=== PATIENT | female | born 1970 | race Caucasian/White ===

== ENCOUNTER 2020-12-30 08:56 | Emergency (ER) | payer BC, MEDICAID, MEDICARE ==
[~2020-12-30] VITALS: Ht 160 cm; Wt 72.0 kg
[~2020-12-30 08:56] MED LIST: AC500T PO; ACET-789 PO; ACHD5005 PO; ALBU17AE23 IH; ALBU17AE3 IH; ALBU8.5H2 IH; ALBU8.5H4 IH; ALDACTONE25 MG PO; ALPR1T PO; ALPR1TAB21 PO; ALPR1TAB72 PO; AMIT25TA9 PO; AMOX500C2 PO; APIX5TAB2 PO; ASP81CT PO; ASP81TEC; AZIT-21 PO; BMSB30 PO; BUTA-234; BUTA-234 PO; BUTA1TAB55 PO; CEFD300C3 PO; CEPH-38 PO; CEPH500C PO; CHOL2000 PO; CIPR-17 PO; CLCX200C PO; CLIN300C3 PO; CPR250T PO; CPR500T PO; CYAN100053 IJ; CYCL10TA9 PO; DESV100T; DESV50TA PO; DIAZ5TAB3 PO; DOXE100C4; DOXY-233 PO; ENXP80I.8 SQ; ESZO3TAB3 PO; FENO45CA PO; FERR-57 PO; FERR324T4 PO; FESO4TAB PO; FRS325T; GABA-488 PO; GABA100C PO; GBPN100C PO; HYDR-1231 PO; HYDR-2890 PO; HYDR-34 PO; HYDR-3583 PO; HYDR-3816 PO; HYDR-757 PO; HYDR118S10 PO; HYDR120S7 PO; HYDR15SO5 PO; HYDR1CAP2 PO; HYDR1TAB PO; HYDR1TAB86 PO; HYOS0.1216 PO; IBP800T PO; KETO-22 PO; LORA10TA7 PO; MAGN400T6 PO; MELO-195 PO; MELOXICAM; METR500T PO; MILN50TA PO; MTC5V480 PO; MTR250T PO; NAPR-243 PO; NAPR220T76 PO; NEXIUM; NF-ESOM40C PO; NITR-65 PO; NITR100C3 PO; NYST1000 PO; ONDA8TAB13 PO; ONDA8TAB6 PO; ONDAN4ODT PO; ORPH100T PO; OXB5T; OXB5TCR PO; OXYC-12 PO; OXYC1CAP3 PO; PHEN200T27 PO; PNT40TEC PO; PRCD5U PO; PRD10T PO; PRD20T PO; RABE20TA PO; ROPI0.25 PO; ROPI1TAB PO; ROPI2TAB28 PO; SCR1T PO; SERT50TA2 PO; SPIR25TA3 PO; SPRINTEC PO; SULF-222 PO; SUMA100T2 PO; TAPE50TA2 PO; TETR500C2 PO; TRAM-21 PO; TRAM50TA2 PO; TRM50T PO; VNL75CCR PO; VNL75T PO; WARF6TAB PO; WRF10T PO; WRF2.5T PO; WRF5T PO; ZOLP10TA PO; [UNRECOGNIZED DRUG - CODE] PO; [UNRECOGNIZED DRUG - CODE] PO
[2020-12-30] MEDS ORDERED: LORazepam INJ 2 MG/ML (ATIVAN) VIAL IVP ONE ×2 (09:15→09:30)
[2020-12-30 09:16] LABS: BASOPHILS # (AUTO) 0.1 10^3/uL (0.0-0.1); BASOPHILS % (AUTO) 1 % (0-10); EOSINOPHILS # (AUTO) 0.1 10^3/uL (0.0-0.3); EOSINOPHILS % (AUTO) 2 % (0-10); HEMATOCRIT 39 % (35-52); HEMOGLOBIN 12.6 g/dL (11.5-16.0); LYMPHOCYTES % (AUTO) 28 % (12-44); MEAN CORPUSCULAR HEMOGLOBIN 29 pg (25-34); MEAN CORPUSCULAR HGB CONC 33 g/dL (32-36); MEAN CORPUSCULAR VOLUME 88 fL (80-99); MEAN PLATELET VOLUME 9.9 fL (9.0-12.2); MONOCYTES # (AUTO) 0.5 10^3/uL (0.0-1.0); MONOCYTES % (AUTO) 7 % (0-12); NEUTROPHILS # (AUTO) 4.5 10^3/uL (1.8-7.8); NEUTROPHILS % (AUTO) 62 % (42-75); PLATELET COUNT 376 10^3/uL (130-400); WHITE BLOOD COUNT 7.2 10^3/uL (4.3-11.0)
[2020-12-30 09:27] LABS: ALBUMIN 4.4 GM/DL (3.2-4.5); CHLORIDE 106 MMOL/L (98-107); POTASSIUM 4.2 MMOL/L (3.6-5.0); SODIUM 140 MMOL/L (135-145)
[2020-12-30 09:28] LABS: CALCIUM 9.2 MG/DL (8.5-10.1)
[2020-12-30 09:29] LABS: GLUCOSE 106 MG/DL (70-105)
[2020-12-30 09:30] LABS: CARBON DIOXIDE 23 MMOL/L (21-32); TOTAL PROTEIN 7.9 GM/DL (6.4-8.2)
[2020-12-30] MEDS ORDERED: LACTATED RINGERS 1,000 ML IV ONE ×2 (09:30→10:30)
[2020-12-30 09:31] LABS: BILIRUBIN,TOTAL 0.4 MG/DL (0.1-1.0)
[2020-12-30 09:33] LABS: ALKALINE PHOSPHATASE 126 U/L (40-136); CREATININE SERUM 1.25 MG/DL (0.60-1.30); GFR ESTIMATED 45
[2020-12-30 09:34] LABS: BUN/CREATININE RATIO 18
[2020-12-30 09:36] LABS: ALANINE AMINOTRANSFERASE 18 U/L (0-55); MAGNESIUM 2.2 MG/DL (1.6-2.4)
[2020-12-30 09:37] LABS: CREATINE KINASE 206 U/L (29-168)
[2020-12-30 11:45] LABS: BILIRUBIN,URINE NEGATIVE (NEGATIVE); CLARITY,URINE CLEAR; COLOR,URINE YELLOW; GLUCOSE, URINE (UA) NEGATIVE (NEGATIVE); KETONES,URINE NEGATIVE (NEGATIVE); LEUKOCYTE ESTERASE ,URINE 3+ (NEGATIVE); NITRITE,URINE NEGATIVE (NEGATIVE); PROTEIN,URINE NEGATIVE (NEGATIVE)
[2020-12-30 12:03] LABS: BACTERIA,URINE FEW /HPF; TRICHOMONAS,URINE MODERATE /HPF; WBC,URINE 50-100 /HPF
[2020-12-30 12:18] LABS: AMPHETAMINE SCREEN, URINE POSITIVE (NEGATIVE); BARBITURATE SCREEN URINE NEGATIVE (NEGATIVE); BENZODIAZEPINES SCREEN URINE POSITIVE (NEGATIVE); CANNABINOID SCREEN, URINE NEGATIVE (NEGATIVE); COCAINE SCREEN URINE NEGATIVE (NEGATIVE); METHADONE STAT NEGATIVE (NEGATIVE); METHAMPHETAMINE SCREEN URINE S POSITIVE (NEGATIVE); OPIATE SCREEN URINE POSITIVE (NEGATIVE); OXYCODONE STAT NEGATIVE (NEGATIVE); PROPOXYPHENE STAT NEGATIVE (NEGATIVE); TRICYCLIC ANTIDEPRESSANTS SCRE NEGATIVE (NEGATIVE)
[2020-12-30] MEDS ORDERED: metroNIDAZOLE 500 MG (FLAGYL) TAB PO ONE (12:45)
[2020-12-30] MEDS ORDERED: AZITHROMYCIN 250 MG TAB (ZITHROMAX) PO ONE (12:45)
[2020-12-30] MEDS ORDERED: ONDANSETRON 4 MG/2 ML (SDV) Z0FRAN IVP ONE (12:45)
[2020-12-30] MEDS ORDERED: cefTRIAXone FOR IV USE 1,000 MG in WATER (STERILE) FOR INJECTION 10 ML IV ONE (12:45)
[2020-12-30] MEDS ORDERED: CEPH500T PO (12:46)
--- NOTE | 2020-12-30 12:46 | ED General ---
General Chief Complaint: General Problems/Pain Stated Complaint: SOB, DIFFICULTY SWALLOWING, LEG CRAMPS Nursing Triage Note: PT AMB TO ROOM 3 PT UNCONTROLLABLY MOVING HEAD, LEGS AND ARMS. PT STATES CRAMPING STARTED 3 DAYS AGO, STATES HAS NOT BEEN EATING OR DRINKING. STATES TINGLING ALL OVER. PT IS HYPERVENTILATING RR UP TO 50'S AT TIMES. Nursing Sepsis Screen: No Definite Risk Source of Information: Patient, Old Records Exam Limitations: No Limitations History of Present Illness Date Seen by Provider: Dec 30, 2020 Time Seen by Provider: 08:58 Initial Comments This 50-year-old woman presents to the emergency room by private vehicle with complaints that are difficult to discern. She is quite anxious and appears to be hyperventilating. She has dystonic movements. She complains of cramping and sore muscles especially in her right calf. She has had decreased oral intake over the past 3 days and has felt agitated. She complains of paresthesias in her extremities. She states difficulty swallowing. She denies any drug or alcohol use. She is notably hypertensive. She reports recently moving back to the area from [place]. Allergies and Home Medications Allergies Coded Allergies: ketorolac tromethamine (Verified Allergy, Intermediate, NAUSEATED, 09/18/13) Shubert Juice (Verified Allergy, Unknown, HIVES, 02/01/15) tramadol (Unverified Allergy, Unknown, 02/01/15) Home Medications Albuterol 17 Gm Inh, 2 PUFF IH QID PRN for WHEEZING, (Reported) NEEDED FOR WHEEZING Cephalexin 500 Mg Tablet, 500 MG PO TID Prescribed by: LACIE BELL on 12/30/20 1246 Cyclobenzaprine HCl 10 Mg Tablet, 10 MG PO TID, (Reported) Hydrocodone Bit/Acetaminophen 1 Each Tablet, 1-2 TAB PO Q4H PRN for PAIN, (Reported) NEEDED FOR PAIN 10-500MG TABLET Ondansetron 8 Mg Tab.rapdis, 8 MG PO Q6H PRN for NAUSEA/VOMITING Prescribed by: SUNDAY ORELLANA on 06/24/14 1355 Sertraline HCl 50 Mg Tablet, 50 MG PO DAILY, (Reported) Sumatriptan Succinate 100 Mg Tablet, 100 MG PO UD PRN for MIGRAINE, (Reported) TAKE 1 TABLET AT ONSET OF MIGRAINE, MAY REPEAT IN 2 HOURS IF SYMPTOMS PRESIST. Zolpidem Tartrate 10 Mg Tablet, 10 MG PO HS, (Reported) Patient Home Medication List Home Medication List Reviewed: Yes Review of Systems Review of Systems Constitutional: see HPI; No fever EENTM: see HPI Respiratory: see HPI Cardiovascular: see HPI Gastrointestinal: no symptoms reported Genitourinary: no symptoms reported Musculoskeletal: see HPI Skin: no symptoms reported Psychiatric/Neurological: See HPI Hematologic/Lymphatic: No Symptoms Reported Immunological/Allergic: no symptoms reported Past Fmcptxo-Lvoepz-Yddxbs Hx Past Med/Social Hx: Reviewed Nursing Past Med/Soc Hx Patient Social History Alcohol Use: Denies Use Smoking Status: Current Everyday Smoker Type Used: Cigarettes Recent Infectious Disease Expo: No Recent Hopitalizations: No Immunizations Up To Date Tetanus Booster (TDap): Less than 5yrs Past Medical History Surgeries: Yes (RIGHT CTR, LAC repair rt forearm, vena cava filter placement, gastric bypas) 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 Respiratory: Yes Pulmonary Embolism Cardiac: Yes (cardiac catheter 2010 with no coronary artery disease) Deep Vein Thrombosis Neurological: Yes 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 Disorders: No 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 Sexually Transmitted Disease: No Genitourinary: No Gastrointestinal: Yes (GASTRIC BYPASS) Musculoskeletal: Yes Arthritis Endocrine: No Cancer: No Psychosocial: Yes Anxiety, Depression Integumentary: Yes (CURRENT GENERALIZED VASCULITIS ) Recent Skin Changes Blood Disorders: Yes (HX BLOOD CLOTS IN LUNGS ) Family Medical History Alcoholism 09 BROTHER Family history: Diabetes mellitus 03 FATHER Heart disease 03 FATHER Myocardial infarction 03 MOTHER, Onset:62 No Pertinent Family Hx Physical Exam Vital Signs Vital Signs - First Documented 12/30/20 08:58 Temp 36.5 Pulse 78 Resp 28 B/P (MAP) 189/135 (153) Pulse Ox 96 O2 Delivery Room Air Capillary Refill : Less Than 3 Seconds Height, Weight, BMI Height: 5'3" Weight: 160lbs. 4.0oz. 72.487691ux; 28.00 BMI Method:Stated General Appearance: WD/WN, Moderate Distress HEENT: PERRL/EOMI, Other (Oropharynx somewhat dry) Neck: Normal Inspection Respiratory: Lungs Clear, Normal Breath Sounds, No Accessory Muscle Use, Other (Hyperventilating) Cardiovascular: Regular Rate, Rhythm, No Edema, No Murmur Gastrointestinal: Normal Bowel Sounds, Non Tender, Soft Extremity: Normal Inspection, No Pedal Edema, Other (Right calf tender to palpation) Neurologic/Psychiatric: Alert, Oriented x3, No Motor/Sensory Deficits, religious assistant II- XII Norm as Tested, Other (Agitated, dystonic movements, hyperventilating) Skin: Normal Color, Warm/Dry Progress/Results/Core Measures Suspected Sepsis Recent Fever Within 48 Hours: No Infection Criteria Present: None New/Unexplained Altered Menta: No Sepsis Screen: No Definite Risk SIRS Temperature: Pulse: 78 Respiratory Rate: 28 Laboratory Tests 12/30/20 09:09: White Blood Count 7.2 Blood Pressure 189 /135 Mean: 153 Laboratory Tests 12/30/20 09:09: Creatinine 1.25, Platelet Count 376, Total Bilirubin 0.4 Results/Orders Lab Results Laboratory Tests Test 12/30/20 09:05 12/30/20 09:09 12/30/20 11:35 Range/Units Coronavirus 2019 (MYRIAM) Negative Negative White Blood Count 7.2 4.3-11.0 10^3/uL Red Blood Count 4.41 3.80-5.11 10^6/uL Hemoglobin 12.6 11.5-16.0 g/dL Hematocrit 39 35-52 % Mean Corpuscular Volume 88 80-99 fL Mean Corpuscular Hemoglobin 29 25-34 pg Mean Corpuscular Hemoglobin Concent 33 32-36 g/dL Red Cell Distribution Width 12.8 10.0-14.5 % Platelet Count 376 130-400 10^3/uL Mean Platelet Volume 9.9 9.0-12.2 fL Immature Granulocyte % (Auto) 0 % Neutrophils (%) (Auto) 62 42-75 % Lymphocytes (%) (Auto) 28 12-44 % Monocytes (%) (Auto) 7 0-12 % Eosinophils (%) (Auto) 2 0-10 % Basophils (%) (Auto) 1 0-10 % Neutrophils # (Auto) 4.5 1.8-7.8 10^3/uL Lymphocytes # (Auto) 2.0 1.0-4.0 10^3/uL Monocytes # (Auto) 0.5 0.0-1.0 10^3/uL Eosinophils # (Auto) 0.1 0.0-0.3 10^3/uL Basophils # (Auto) 0.1 0.0-0.1 10^3/uL Immature Granulocyte # (Auto) 0.0 0.0-0.1 10^3/uL D-Dimer < 0.27 0.00-0.49 UG/ML Sodium Level 140 135-145 MMOL/L Potassium Level 4.2 3.6-5.0 MMOL/L Chloride Level 106 98-107 MMOL/L Carbon Dioxide Level 23 21-32 MMOL/L Anion Gap 11 5-14 MMOL/L Blood Urea Nitrogen 22 H 7-18 MG/DL Creatinine 1.25 0.60-1.30 MG/DL Estimat Glomerular Filtration Rate 45 BUN/Creatinine Ratio 18 Glucose Level 106 H 70-105 MG/DL Calcium Level 9.2 8.5-10.1 MG/DL Corrected Calcium 8.9 8.5-10.1 MG/DL Magnesium Level 2.2 1.6-2.4 MG/DL Total Bilirubin 0.4 0.1-1.0 MG/DL Aspartate Amino Transf (AST/SGOT) 14 5-34 U/L Alanine Aminotransferase (ALT/SGPT) 18 0-55 U/L Alkaline Phosphatase 126 40-136 U/L Total Creatine Kinase 206 H 29-168 U/L Total Protein 7.9 6.4-8.2 GM/DL Albumin 4.4 3.2-4.5 GM/DL TSH [place] Testing 0.50 0.35-4.94 UIU/ML Serum Alcohol < 10 <10 MG/DL Urine Color YELLOW Urine Clarity CLEAR Urine pH 7.0 5-9 Urine Specific [place] 1.020 1.016-1.022 Urine Protein NEGATIVE NEGATIVE Urine Glucose (UA) NEGATIVE NEGATIVE Urine Ketones NEGATIVE NEGATIVE Urine Nitrite NEGATIVE NEGATIVE Urine Bilirubin NEGATIVE NEGATIVE Urine Urobilinogen 1.0 < = 1.0 MG/DL Urine Leukocyte Esterase 3+ H NEGATIVE Urine RBC (Auto) NEGATIVE NEGATIVE Urine RBC NONE /HPF Urine WBC 50-100 H /HPF Urine Squamous Epithelial Cells 10-25 H /HPF Urine Crystals NONE /LPF Urine Bacteria FEW H /HPF Urine Casts NONE /LPF Urine Mucus SMALL H /LPF Urine Trichomonas MODERATE H /HPF Urine Culture Indicated YES Urine Opiates Screen POSITIVE H NEGATIVE Urine Oxycodone Screen NEGATIVE NEGATIVE Urine Methadone Screen NEGATIVE NEGATIVE Urine Propoxyphene Screen NEGATIVE NEGATIVE Urine Barbiturates Screen NEGATIVE NEGATIVE Ur Tricyclic Antidepressants Screen NEGATIVE NEGATIVE Urine Phencyclidine Screen NEGATIVE NEGATIVE Urine Amphetamines Screen POSITIVE H NEGATIVE Urine Methamphetamines Screen POSITIVE H NEGATIVE Urine Benzodiazepines Screen POSITIVE H NEGATIVE Urine Cocaine Screen NEGATIVE NEGATIVE Urine Cannabinoids Screen NEGATIVE NEGATIVE My Orders Orders - LACIE MORENO MD Lorazepam Injection (Ativan Injection) (12/30/20 09:15) Alcohol (12/30/20 09:05) Cbc With Automated Diff (12/30/20 09:05) Comprehensive Metabolic Panel (12/30/20 09:05) Creatine Kinase (12/30/20 09:05) Fibrin Degradation Products (12/30/20 09:05) Drug Screen Stat (Urine) (12/30/20 09:05) Magnesium (12/30/20 09:05) Thyroid Analyzer (12/30/20 09:05) Ua Culture If Indicated (12/30/20 09:05) Covid 19 Inhouse Test (12/30/20 09:05) Lorazepam Injection (Ativan Injection) (12/30/20 09:30) Ed Iv/Invasive Line Start (12/30/20 09:27) Lactated Ringers (Lr 1000 Ml Iv Solution (12/30/20 09:30) Lactated Ringers (Lr 1000 Ml Iv Solution (12/30/20 10:30) Urine Culture (12/30/20 11:35) Ceftriaxone For Iv Use (Rocephin For I (12/30/20 12:45) Ondansetron Injection (Zofran Injectio (12/30/20 12:45) Azithromycin Tablet (Zithromax Tablet) (12/30/20 12:45) Metronidazole Tablet (Flagyl Tablet) (12/30/20 12:45) Neis Inderjit Dna Urine Test (12/30/20 12:40) Chlamydia Trachomatis Urine (12/30/20 12:40) Medications Given in ED Current Medications Medications Dose Ordered Sig/Amanda Route Start Time Stop Time Status Last Admin Dose Admin Azithromycin 1,000 mg ONCE ONCE PO 12/30/20 12:45 12/30/20 12:46 DC 12/30/20 12:53 1,000 MG Ceftriaxone Sodium 1000 mg/ Sterile Water 10 ml @ 200 mls/hr ONCE ONCE IV 12/30/20 12:45 12/30/20 12:47 DC 12/30/20 12:53 200 MLS/HR Lactated Ringer's 1,000 ml @ 0 mls/hr Q0M ONCE IV 12/30/20 09:30 12/30/20 09:31 DC 12/30/20 09:30 1,000 MLS/HR Lactated Ringer's 1,000 ml @ 0 mls/hr Q0M ONCE IV 12/30/20 10:30 12/30/20 10:31 DC 12/30/20 10:38 1,000 MLS/HR Lorazepam 0.5 mg ONCE ONCE IVP 12/30/20 09:15 12/30/20 09:16 DC 12/30/20 09:15 0.5 MG Lorazepam 1 mg ONCE ONCE IVP 12/30/20 09:30 12/30/20 09:31 DC 12/30/20 09:30 1 MG Metronidazole 2,000 mg ONCE ONCE PO 12/30/20 12:45 12/30/20 12:46 DC 12/30/20 12:53 2,000 MG Ondansetron HCl 4 mg ONCE ONCE IVP 12/30/20 12:45 12/30/20 12:46 DC 12/30/20 12:54 4 MG Vital Signs/I&O 12/30/20 12/30/20 08:58 13:03 Temp 36.5 Pulse 78 72 Resp 28 22 B/P (MAP) 189/135 (153) 130/99 (153) Pulse Ox 96 96 O2 Delivery Room Air Capillary Refill : Less Than 3 Seconds Blood Pressure Mean: 153 Progress Note : Progress Note Patient received a total of 1.5 mg Ativan by IV route for treatment of agitati on. She was unable to urinate and was given 2 L of LR. Urine drug screen revealed methamphetamines. Patient claims to have no idea how she may have ingested methamphetamine. Dystonia and agitation did eventually calm. Blood pressure was trending downward. Patient was also found to have trichomonas and evidence of urinary tract infection. She reports infidelity from By her from whom she is now . She was treated with Rocephin, Flagyl, and azithromycin empirically. STI screening was added to her urinalysis. See discharge instructions for further discussion. Departure Impression Primary Impression: Muscle cramps Additional Impressions: Urinary tract infection Qualified Codes: N39.0 - Urinary tract infection, site not specified Trichomonas infection Positive urine drug screen Dystonia Disposition: 01 HOME, SELF-CARE Condition: Improved Departure-Patient Inst. Decision time for Depature: 12:44 Referrals: NO,LOCAL PHYSICIAN (PCP/Family) Primary Care Physician Patient Instructions: Methamphetamine, Screening for Sexually Transmitted Infections, Urinary Tract Infections in Adults Add. Discharge Instructions: Drink plenty of clear liquids to stay well-hydrated. Complete your antibiotics as prescribed. You may take Tylenol (acetaminophen) up to 1000 mg every 6 hours as needed for pain. Follow-up with a primary care provider and a women's health provider soon as possible. Review culture results at your follow-up. Call with questions or concerns. Return to care with any worsening symptoms. All discharge instructions reviewed with patient and/or family. Voiced understanding. Scripts Cephalexin (Cephalexin) 500 Mg Tablet 500 MG PO TID, #20 TAB Prov: LACIE MORENO MD 12/30/20 LACIE MORENO MD Dec 30, 2020 12:46
[2020-12-30 13:03] VITALS: BP 130/99
== END 2020-12-30 13:03 | disposition home or self-care (01) ==
LOC: EDUNIT# 08:56 → ER 08:58
DX: R25.2 Cramp and spasm (principal); N39.0 Urinary tract infection, site not specified; A59.9 Trichomoniasis, unspecified; R82.90 Unspecified abnormal findings in urine; F32.9 Major depressive disorder, single episode, unspecified; F41.9 Anxiety disorder, unspecified; F17.210 Nicotine dependence, cigarettes, uncomplicated; Z95.9 Presence of cardiac and vascular implant and graft, unspecified; Z88.5 Allergy status to narcotic agent; Z82.49 Family history of ischemic heart disease and other diseases of the circulatory system; Z83.3 Family history of diabetes mellitus; Z20.822 Contact with and (suspected) exposure to COVID-19
CPT/HCPCS: 80053; 80306; 81000; 82550; 83735; 84443; 85025; 85379; 87077; 87088; 87491; 87591; 96361; 96374; 96375; 99284; G0480; U0002; 36415; 80320; 87635

== ENCOUNTER 2021-08-13 10:22 | Emergency (ER) | payer MEDICARE, BC ==
[~2021-08-13] VITALS: Ht 160 cm; Wt 90.0 kg
[~2021-08-13 10:22] MED LIST changes: +CEPH500T PO
[2021-08-13 10:45] LABS: BASOPHILS % (AUTO) 0 % (0-10); EOSINOPHILS # (AUTO) 0.2 10^3/uL (0.0-0.3); EOSINOPHILS % (AUTO) 3 % (0-10); HEMATOCRIT 30 % (35-52); HEMOGLOBIN 9.2 g/dL (11.5-16.0); LYMPHOCYTES # (AUTO) 1.5 10^3/uL (1.0-4.0); LYMPHOCYTES % (AUTO) 15 % (12-44); MEAN CORPUSCULAR HEMOGLOBIN 26 pg (25-34); MEAN CORPUSCULAR HGB CONC 31 g/dL (32-36); MEAN CORPUSCULAR VOLUME 86 fL (80-99); MEAN PLATELET VOLUME 9.8 fL (9.0-12.2); MONOCYTES # (AUTO) 0.5 10^3/uL (0.0-1.0); MONOCYTES % (AUTO) 6 % (0-12); NEUTROPHILS # (AUTO) 7.4 10^3/uL (1.8-7.8); NEUTROPHILS % (AUTO) 76 % (42-75); PLATELET COUNT 367 10^3/uL (130-400); WHITE BLOOD COUNT 9.7 10^3/uL (4.3-11.0)
--- NOTE | 2021-08-13 10:49 | ED Respiratory ---
General Chief Complaint: Respiratory Problems Stated Complaint: LOW O2 Source: patient Exam Limitations: no limitations (ESTRELLITA LAKE APRN) History of Present Illness Date Seen by Provider: Aug 13, 2021 Time Seen by Provider: 10:46 Initial Comments to ER from [facility] with reports of pain in her back and ribs from coughing. She had a productive cough for the past 3 weeks. She had a negative Covid test at [facility] yesterday. She has shortness of breath chronic. [place] she was previously from here. She forgot to bring her oxygen with her and she is supposed to wear it occasionally at home. She also spends a great deal of time talking about her medications. She is on Ambien 12.5 mg a day but she only gets 28 of those per month that is just not enough. She also takes gabapentin 800 mg 4 times a day, she is out of her Xanax though she has sent in a request for a refill but Dr. Membreno has not yet refilled it. She is been off of her morphine 40 mg 4 times daily for about a year and is trying to get that refilled as well. She is on Eliquis for hx of PE. Timing/Duration: constant Severity: moderate Associated Symptoms: cough; No fever/chills; shortness of breath (ESTRELLITA LAKE APRN) Allergies and Home Medications Allergies Coded Allergies: ketorolac tromethamine (Verified Allergy, Intermediate, NAUSEATED, 09/18/13) [place] Juice (Verified Allergy, Unknown, HIVES, 02/01/15) tramadol (Unverified Allergy, Unknown, 02/01/15) Patient Home Medication List Home Medication List Reviewed: Yes (ESTRELLITA LAKE APRN) Albuterol (Proventil) 17 Gm Inh, 2 PUFF IH QID PRN for WHEEZING, (Reported) Entered as Reported by: JOAO MARC on 09/18/13 1106 Amoxicillin/Potassium Clav (Augmentin 875-125 Tablet) 1 Each Tablet, 1 EACH PO BID Prescribed by: ESTRELLITA LAKE on 08/13/21 1256 Benzonatate (Tessalon Perles) 100 Mg Capsule, 100 MG PO TID Prescribed by: ESTRELLITA LAKE on 08/13/21 1256 Cephalexin (Cephalexin) 500 Mg Tablet, 500 MG PO TID Prescribed by: LACIE BELL on 12/30/20 1246 Cyclobenzaprine HCl (Cyclobenzaprine HCl) 10 Mg Tablet, 10 MG PO TID, (Reported) Entered as Reported by: SEVEN OLIVER on 06/24/16 134 Desvenlafaxine Succinate (Pristiq) 100 Mg Tab.sr.24h, 100, (Reported) Entered as Reported by: LESLY MORENO on 06/24/14 1100 Gabapentin (Gabapentin) 300 Mg Capsule, Unknown Dose PO, (Reported) Entered as Reported by: SEVEN OLIVER on 06/24/16 134 Hydrocodone Bit/Acetaminophen (Hydrocodon-Acetaminophn 10-500) 1 Each Tablet, 1- 2 TAB PO Q4H PRN for PAIN, (Reported) Entered as Reported by: MARJAN VILLALOBOS on 07/09/122053 Ondansetron (Ondansetron Odt) 8 Mg Tab.rapdis, 8 MG PO Q6H PRN for NAUSEA/VOMITING Prescribed by: SUNDAY ORELLANA on 06/24/14 1355 Prednisone (Prednisone) 20 Mg Tab, 40 MG PO DAILY Prescribed by: ESTRELLITA LAKE on 08/13/21 1256 Sertraline HCl (Zoloft) 50 Mg Tablet, 50 MG PO DAILY, (Reported) Entered as Reported by: SEVEN OLIVER on 06/24/16 134 Sumatriptan Succinate (Imitrex) 100 Mg Tablet, 100 MG PO UD PRN for MIGRAINE, (Reported) Entered as Reported by: MARJAN VILLALOBOS on 07/09/122054 Tapentadol HCl (Nucynta) 50 Mg Tablet, Unknown Dose PO, (Reported) Entered as Reported by: SEVEN OLIVER on 06/24/16 134 Zolpidem Tartrate (Ambien) 10 Mg Tablet, 10 MG PO HS, (Reported) Entered as Reported by: SEVEN OLIVER on 06/24/16 134 Review of Systems Review of Systems Constitutional: see HPI EENTM: see HPI Respiratory: see HPI, cough Cardiovascular: no symptoms reported Genitourinary: no symptoms reported Musculoskeletal: no symptoms reported Skin: no symptoms reported Psychiatric/Neurological: No Symptoms Reported Hematologic/Lymphatic: No Symptoms Reported Immunological/Allergic: no symptoms reported (ESTRELLITA LAKE APRN) Past Okdsuyv-Iutuhp-Qncgah Hx Immunizations Up To Date Tetanus Booster (TDap): Less than 5yrs (ESTRELLITA LAKE APRN) Past Medical History Surgeries: Yes (RIGHT CTR, LAC repair rt forearm, vena cava filter placement, gastric bypas) 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 Respiratory: Yes Pulmonary Embolism Cardiac: Yes (cardiac catheter 2011 with no coronary artery disease) Deep Vein Thrombosis Neurological: Yes 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 Disorders: No Female 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 Disorders: Denies 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 Sexually Transmitted Disease: No Genitourinary: No Gastrointestinal: Yes (GASTRIC BYPASS) Musculoskeletal: Yes Arthritis Endocrine: No Cancer: No Psychosocial: Yes Anxiety, Depression Integumentary: Yes (CURRENT GENERALIZED VASCULITIS ) Recent Skin Changes Blood Disorders: Yes (HX BLOOD CLOTS IN LUNGS ) (ESTRELLITA LAKE APRN) Family Medical History Alcoholism 09 BROTHER Family history: Diabetes mellitus 03 FATHER Heart disease 03 FATHER Myocardial infarction 03 MOTHER, Onset:62 No Pertinent Family Hx (ESTRELLITA LAKE APRN) Physical Exam Vital Signs - First Documented 08/13/21 10:41 Temp 37.1 Pulse 101 Resp 24 B/P (MAP) 146/91 (109) Pulse Ox 93 O2 Delivery Nasal Cannula O2 Flow Rate 2.00 (LACIE MORENO MD) Capillary Refill : (ESTRELLITA LAKE APRN) Height: 5'3" Weight: 160lbs. 4.0oz. [id number]; 28.00 BMI Method:Stated General Appearance: WD/WN, no apparent distress, other (96% on 2 L, though her oxygen is 88% on room air at rest.) Eyes: Bilateral Eye Normal Inspection, Bilateral Eye PERRL, Bilateral Eye EOMI HEENT: PERRL/EOMI, pharynx normal Neck: non-tender, full range of motion Respiratory: no respiratory distress, no accessory muscle use Gastrointestinal: normal bowel sounds, non tender Extremities: normal range of motion, non-tender Neurologic/Psychiatric: alert, normal mood/affect, oriented x 3 Skin: normal color, warm/dry (ESTRELLITA LAKE APRN) Progress/Results/Core Measures Suspected Sepsis SIRS Temperature: Pulse: Respiratory Rate: Laboratory Tests 08/13/21 10:35: White Blood Count 9.7 Blood Pressure / Mean: Laboratory Tests 08/13/21 10:35: Creatinine 1.04, Platelet Count 367, Total Bilirubin 0.2 (ESTRELLITA LAKE APRN) Results/Orders Lab Results Laboratory Tests Test 08/13/21 10:35 08/13/21 12:24 Range/Units White Blood Count 9.7 4.3-11.0 10^3/uL Red Blood Count 3.48 L 3.80-5.11 10^6/uL Hemoglobin 9.2 L 11.5-16.0 g/dL Hematocrit 30 L 35-52 % Mean Corpuscular Volume 86 80-99 fL Mean Corpuscular Hemoglobin 26 25-34 pg Mean Corpuscular Hemoglobin Concent 31 L 32-36 g/dL Red Cell Distribution Width 15.7 H 10.0-14.5 % Platelet Count 367 130-400 10^3/uL Mean Platelet Volume 9.8 9.0-12.2 fL Immature Granulocyte % (Auto) 1 % Neutrophils (%) (Auto) 76 H 42-75 % Lymphocytes (%) (Auto) 15 12-44 % Monocytes (%) (Auto) 6 0-12 % Eosinophils (%) (Auto) 3 0-10 % Basophils (%) (Auto) 0 0-10 % Neutrophils # (Auto) 7.4 1.8-7.8 10^3/uL Lymphocytes # (Auto) 1.5 1.0-4.0 10^3/uL Monocytes # (Auto) 0.5 0.0-1.0 10^3/uL Eosinophils # (Auto) 0.2 0.0-0.3 10^3/uL Basophils # (Auto) 0.0 0.0-0.1 10^3/uL Immature Granulocyte # (Auto) 0.1 0.0-0.1 10^3/uL D-Dimer 1.24 H 0.00-0.49 UG/ML Sodium Level 137 135-145 MMOL/L Potassium Level 4.0 3.6-5.0 MMOL/L Chloride Level 100 98-107 MMOL/L Carbon Dioxide Level 24 21-32 MMOL/L Anion Gap 13 5-14 MMOL/L Blood Urea Nitrogen 22 H 7-18 MG/DL Creatinine 1.04 0.60-1.30 MG/DL Estimat Glomerular Filtration Rate 56 BUN/Creatinine Ratio 21 Glucose Level 137 H 70-105 MG/DL Calcium Level 8.8 8.5-10.1 MG/DL Corrected Calcium 9.4 8.5-10.1 MG/DL Total Bilirubin 0.2 0.1-1.0 MG/DL Aspartate Amino Transf (AST/SGOT) 13 5-34 U/L Alanine Aminotransferase (ALT/SGPT) 17 0-55 U/L Alkaline Phosphatase 108 40-136 U/L B-Type Natriuretic Peptide 176.8 H <100.0 PG/ML Total Protein 6.5 6.4-8.2 GM/DL Albumin 3.2 3.2-4.5 GM/DL Procalcitonin 0.18 H <0.10 NG/ML Urine Color DARK YELLOW Urine Clarity SL CLOUDY Urine pH 6.0 5-9 Urine Specific [place] 1.025 H 1.016-1.022 Urine Protein TRACE H NEGATIVE Urine Glucose (UA) NEGATIVE NEGATIVE Urine Ketones NEGATIVE NEGATIVE Urine Nitrite NEGATIVE NEGATIVE Urine Bilirubin NEGATIVE NEGATIVE Urine Urobilinogen 1.0 < = 1.0 MG/DL Urine Leukocyte Esterase NEGATIVE NEGATIVE Urine RBC (Auto) NEGATIVE NEGATIVE Urine RBC 0-2 /HPF Urine WBC 0-2 /HPF Urine Crystals PRESENT H /LPF Urine Amorphous Sediment RARE FERMIN URATES H /LPF Urine Bacteria TRACE /HPF Urine Casts PRESENT /LPF Urine Hyaline Casts 0-2 H /LPF Urine Mucus NEGATIVE /LPF Urine Culture Indicated NO Urine Opiates Screen NEGATIVE NEGATIVE Urine Oxycodone Screen NEGATIVE NEGATIVE Urine Methadone Screen NEGATIVE NEGATIVE Urine Propoxyphene Screen NEGATIVE NEGATIVE Urine Barbiturates Screen NEGATIVE NEGATIVE Ur Tricyclic Antidepressants Screen POSITIVE H NEGATIVE Urine Phencyclidine Screen NEGATIVE NEGATIVE Urine Amphetamines Screen NEGATIVE NEGATIVE Urine Methamphetamines Screen NEGATIVE NEGATIVE Urine Benzodiazepines Screen NEGATIVE NEGATIVE Urine Cocaine Screen NEGATIVE NEGATIVE Urine Cannabinoids Screen NEGATIVE NEGATIVE (LACIE MORENO MD) Medications Given in ED Current Medications Medications Dose Ordered Sig/Amanda Route Start Time Stop Time Status Last Admin Dose Admin Acetaminophen 1,000 mg ONCE ONCE PO 08/13/21 11:00 08/13/21 11:01 DC 08/13/21 11:29 1,000 MG Ceftriaxone Sodium 2000 mg/ Sterile Water 20 ml @ 240 mls/hr ONCE ONCE IV 08/13/21 13:15 08/13/21 13:19 DC 08/13/21 13:26 240 MLS/HR Diphenhydramine HCl 25 mg ONCE ONCE IVP 08/13/21 11:00 08/13/21 11:01 DC 08/13/21 11:29 25 MG Iohexol 100 ml ONCE ONCE IV 08/13/21 12:00 08/13/21 12:01 DC 08/13/21 12:20 77 ML Prochlorperazine Edisylate 10 mg ONCE ONCE IV 08/13/21 11:00 08/13/21 11:01 DC 08/13/21 11:30 10 MG Sodium Chloride 100 ml ONCE ONCE IV 08/13/21 12:00 08/13/21 12:01 DC 08/13/21 12:20 80 ML (LACIE MORENO MD) Vital Signs/I&O 08/13/21 08/13/21 10:41 14:15 Temp 37.1 Pulse 101 86 Resp 24 18 B/P (MAP) 146/91 (109) 109/73 Pulse Ox 93 97 O2 Delivery Nasal Cannula Nasal Cannula O2 Flow Rate 2.00 2.00 (LACIE MORENO MD) Vital Signs/I&O Capillary Refill : (ESTRELLITA LAKE APRN) Departure Communication (Admissions) Family Conversation Because of her oxygen saturation of 88% on room air she will need supplemental oxygen for home. She states that she did formerly have oxygen at home but left at her old [place] state. I will get her set up for home oxygen here. NAME: ABHAY BARRIOS [facility] REC#: [id number] PT STATUS: REG ER : 1970 PHYSICIAN: ESTRELLITA LAKE APRN ADMIT DATE: 08/13/21/ER Draft Date of Exam:08/13/21 CT ANGIO CHEST W Clinical indication: Patient with elevated d-dimer and shortness of air. Patient with productive cough, fever at home and COVID. Exam: CT angiogram of the chest performed with 77 cc Omnipaque 350 IV contrast. Coronal and oblique MIP images of the vasculature were created to better evaluate anatomy. Auto Exposure Controls were utilized during the CT exam to meet ALARA standards for radiation dose reduction. Comparison: CT angiogram of the chest with contrast dated 02/01/2012.. Findings: There is interval development of patchy and nodular areas of groundglass opacification and small patchy amorphous areas of consolidation extending to the periphery throughout the right lung. These findings are predominantly in a bronchovascular distribution. There are a few areas of groundglass nodules in the superior segment of the left lower lobe. These findings are concerning for infectious inflammatory process. There is a small amount of suspected secretions in the distal right main bronchus. There is mild bronchial wall thickening bilateral in the perihilar regions and extending to the periphery of the right lung concerning for associated bronchitis. There is air distention of the esophagus which is nonspecific which may be related to esophageal dysmotility or reflux. There is no pleural effusion or pneumothorax. There are subcentimeter mediastinal and hilar lymph nodes. There is no evidence of pulmonary embolism. There is no thoracic aortic aneurysm or dissection. Postop change to the upper abdomen related to gastroplasty is noted. Nonspecific prominence of the intrahepatic ducts and common hepatic duct which has progressed in the interim. Common hepatic duct measures roughly 1.7 cm as visualized. There are degenerative spurs involving the thoracic spine. Extrathoracic soft tissue structures show no significant abnormality. Neurostimulator electrodes are noted overlying the lower thoracic spine. IMPRESSION: 1: There is no evidence of pulmonary embolism, thoracic aortic aneurysm or thoracic aortic dissection. 2: There is interval development of diffuse patchy nodular areas of groundglass opacification and consolidation throughout the right lung and minimal amount in the superior segment left lower lobe. These findings are concerning for pneumonia. There is also bronchial wall thickening concerning for bronchitis (right side more than the left). 3: There is no significant lymphadenopathy. 4: There is incompletely imaged enlargement of the intrahepatic and common hepatic ducts which is new compared to the prior study. Nonemergent right upper quadrant ultrasound is suggested for further evaluation. Dictated on workstation # [id number] Dict: 08/13/21 1227 Trans: 08/13/[address] [facility] [id number] Interpreted by: PANFILO ARRIETA MD Electronically signed by: (ESTRELLITA LAKE APRN) Impression Primary Impression: Pneumonia involving right lung Additional Impression: Hypoxia Disposition: 01 HOME, SELF-CARE Condition: Stable Departure-Patient Inst. Decision time for Depature: 12:53 (ESTRELLITA LAKE APRN) Referrals: NO,LOCAL PHYSICIAN (PCP/Family) Primary Care Physician Patient Instructions: Pneumonia, Adult (DC) Add. Discharge Instructions: 1. Take the antibiotics and steroids as directed return to ER for any concerns follow-up with your doctor next week. When following up with your doctor discuss obtaining an ultrasound of the right upper quadrant of your abdomen to evaluate liver and gallbladder as the bile ducts looked a little enlarged on today's CT though they were incompletely viewed since this was a CT scan of your chest. All discharge instructions reviewed with patient and/or family. Voiced understanding. Scripts Benzonatate (TESSALON PERLES) 100 Mg Capsule 100 MG PO TID, #14 CAP Prov: ESTRELLITA LAKE APRN 08/13/21 Prednisone (Prednisone) 20 Mg Tab 40 MG PO DAILY, #6 TAB 0 Refills Prov: ESTRELLITA LAKE APRN 08/13/21 Amoxicillin/Potassium Clav (Augmentin 875-125 Tablet) 1 Each Tablet 1 EACH PO BID, #14 TAB 0 Refills Prov: ESTRELLITA LAKE APRN 08/13/21 ATTENDING PHYSICIAN NOTE: I was physically present as attending physician in the emergency department during the care of this patient, but I was not directly involved in the decision making or delivery of care for this patient. (LACIE MORENO MD) ESTRELLITA LAKE APRN Aug 13, 2021 10:49 LACIE MORENO MD Aug 13, 2021 16:49
[2021-08-13 10:57] LABS: ALBUMIN 3.2 GM/DL (3.2-4.5)
[2021-08-13 10:59] LABS: CALCIUM 8.8 MG/DL (8.5-10.1)
[2021-08-13 11:00] LABS: TOTAL PROTEIN 6.5 GM/DL (6.4-8.2)
[2021-08-13] MEDS ORDERED: diphenhydrAMINE 50 MG/ML INJ (BENADRYL) IVP ONE (11:00)
[2021-08-13] MEDS ORDERED: PROCHLORPERAZINE 10 MG/2ML INJ (COMPAZINE) IV ONE (11:00)
[2021-08-13] MEDS ORDERED: ACETAMINOPHEN 500 MG TAB (TYLENOL) PO ONE (11:00)
[2021-08-13 11:02] LABS: BILIRUBIN,TOTAL 0.2 MG/DL (0.1-1.0)
[2021-08-13 11:04] LABS: CREATININE SERUM 1.04 MG/DL (0.60-1.30)
--- NOTE | 2021-08-13 11:45 | Diagnostic Imaging Report ---
Clinical indications: Patient with chest pain and low oxygen saturation. Exam: Portable chest x-ray upright view. Comparisons: Portable chest x-ray dated 02/05/2012. Findings: There is interval development of small patchy airspace opacities involving the right midlung field and right lung base concerning for lung infiltrates. There is mild left basilar atelectasis. Remainder of the lungs are clear. There is no pleural effusion or pneumothorax. Pulmonary vasculature and cardiac silhouette are within normal limits. Neurostimulator electrode has been placed in interim and overlying the mid thoracic region. IMPRESSION: 1.: There is interval development of patchy airspace infiltrates involving the right midlung field and right lung base concerning for pneumonia. Dictated by: Dictated on workstation # [id number]
[2021-08-13] MEDS ORDERED: HOLD METFORMIN - RECEIVED CONTRAST 20 ML VIAL IV SCH (12:00)
[2021-08-13] MEDS ORDERED: IOHEXOL 350 MG/ML 100 ML (OMNIPAQUE 350) VIAL IV ONE (12:00)
[2021-08-13] MEDS ORDERED: LACTATED RINGERS 1,000 ML IV SCH (12:00)
[2021-08-13] MEDS ORDERED: NS 100 ML (IVPB) BAG IV ONE (12:00)
[2021-08-13 12:36] LABS: BILIRUBIN,URINE NEGATIVE (NEGATIVE); CLARITY,URINE SL CLOUDY; COLOR,URINE DARK YELLOW; GLUCOSE, URINE (UA) NEGATIVE (NEGATIVE); KETONES,URINE NEGATIVE (NEGATIVE); LEUKOCYTE ESTERASE ,URINE NEGATIVE (NEGATIVE); NITRITE,URINE NEGATIVE (NEGATIVE); PROTEIN,URINE TRACE (NEGATIVE)
--- NOTE | 2021-08-13 12:44 | Diagnostic Imaging Report ---
Clinical indication: Patient with elevated d-dimer and shortness of air. Patient with productive cough, fever at home and COVID. Exam: CT angiogram of the chest performed with 77 cc Omnipaque 350 IV contrast. Coronal and oblique MIP images of the vasculature were created to better evaluate anatomy. Auto Exposure Controls were utilized during the CT exam to meet ALARA standards for radiation dose reduction. Comparison: CT angiogram of the chest with contrast dated 02/01/2012.. Findings: There is interval development of patchy and nodular areas of groundglass opacification and small patchy amorphous areas of consolidation extending to the periphery throughout the right lung. These findings are predominantly in a bronchovascular distribution. There are a few areas of groundglass nodules in the superior segment of the left lower lobe. These findings are concerning for infectious inflammatory process. There is a small amount of suspected secretions in the distal right main bronchus. There is mild bronchial wall thickening bilateral in the perihilar regions and extending to the periphery of the right lung concerning for associated bronchitis. There is air distention of the esophagus which is nonspecific which may be related to esophageal dysmotility or reflux. There is no pleural effusion or pneumothorax. There are subcentimeter mediastinal and hilar lymph nodes. There is no evidence of pulmonary embolism. There is no thoracic aortic aneurysm or dissection. Postop change to the upper abdomen related to gastroplasty is noted. Nonspecific prominence of the intrahepatic ducts and common hepatic duct which has progressed in the interim. Common hepatic duct measures roughly 1.7 cm as visualized. There are degenerative spurs involving the thoracic spine. Extrathoracic soft tissue structures show no significant abnormality. Neurostimulator electrodes are noted overlying the lower thoracic spine. IMPRESSION: 1: There is no evidence of pulmonary embolism, thoracic aortic aneurysm or thoracic aortic dissection. 2: There is interval development of diffuse patchy nodular areas of groundglass opacification and consolidation throughout the right lung and minimal amount in the superior segment left lower lobe. These findings are concerning for pneumonia. There is also bronchial wall thickening concerning for bronchitis (right side more than the left). 3: There is no significant lymphadenopathy. 4: There is incompletely imaged enlargement of the intrahepatic and common hepatic ducts which is new compared to the prior study. Nonemergent right upper quadrant ultrasound is suggested for further evaluation. Dictated by: Dictated on workstation # [id number]
[2021-08-13 12:52] LABS: AMORPHOUS SEDIMENT,UR RARE AMOR URATES /LPF; BACTERIA,URINE TRACE /HPF; HYALINE CASTS, URINE 0-2 /LPF; RBC,URINE 0-2 /HPF; WBC,URINE 0-2 /HPF
[2021-08-13 12:55] LABS: AMPHETAMINE SCREEN, URINE NEGATIVE (NEGATIVE); BARBITURATE SCREEN URINE NEGATIVE (NEGATIVE); BENZODIAZEPINES SCREEN URINE NEGATIVE (NEGATIVE); CANNABINOID SCREEN, URINE NEGATIVE (NEGATIVE); COCAINE SCREEN URINE NEGATIVE (NEGATIVE); METHADONE STAT NEGATIVE (NEGATIVE); METHAMPHETAMINE SCREEN URINE S NEGATIVE (NEGATIVE); OPIATE SCREEN URINE NEGATIVE (NEGATIVE); OXYCODONE STAT NEGATIVE (NEGATIVE); PROPOXYPHENE STAT NEGATIVE (NEGATIVE); TRICYCLIC ANTIDEPRESSANTS SCRE POSITIVE (NEGATIVE)
[2021-08-13] MEDS ORDERED: BENZ100C18 PO (12:56)
[2021-08-13] MEDS ORDERED: AMOX-358 PO (12:56)
[2021-08-13] MEDS ORDERED: PRD20T PO (12:56)
[2021-08-13] MEDS ORDERED: cefTRIAXone 2,000 MG in WATER (STERILE) FOR INJECTION 20 ML IV ONE (13:15)
[2021-08-13 14:15] VITALS: BP 109/73
== END 2021-08-13 14:15 | disposition home or self-care (01) ==
LOC: EDUNIT# 10:22 → ER 10:24
DX: J18.9 Pneumonia, unspecified organism (principal); R09.02 Hypoxemia; F41.9 Anxiety disorder, unspecified; F32.9 Major depressive disorder, single episode, unspecified; Z79.899 Other long term (current) drug therapy
CPT/HCPCS: 36415; 71045; 71275; 80053; 80306; 81000; 83880; 84145; 85025; 85379; 93005; 96365; 96375

== ENCOUNTER 2021-08-21 10:49 | Emergency (ER) | payer MEDICARE, BC ==
[~2021-08-21] VITALS: Ht 160 cm; Wt 95.0 kg
[~2021-08-21 10:49] MED LIST changes: +AMOX-358 PO; +BENZ100C18 PO
--- NOTE | 2021-08-21 11:16 | ED Abdominal Pain ---
General Chief Complaint: Abdominal/GI Problems Stated Complaint: ABDOMINAL PAINS Source of Information: Patient Exam Limitations: No Limitations History of Present Illness Date Seen by Provider: Aug 21, 2021 Time Seen by Provider: 11:02 Initial Comments Patient is a 51-year-old female who presents to the emergency department with a chief complaint of left upper quadrant abdominal pain. Patient states her symptoms have been ongoing for about a week. She was here last week and diagnosed with pneumonia, placed on antibiotics and other medications for this, states she is completed all of her antibiotics and presents with persistent left upper quadrant abdominal pain. Patient is status post Vivienne-en-Y gastric bypass surgery about 10 years ago. She denies any other symptoms other than pain. She has chronic nausea related to her surgery she is on Zofran all the time. She denies any diarrhea, last bowel movement was this morning and she states it was nonblack nonbloody. No new problems with urination. No fevers or chills. She is on home oxygen, /. She states she quit smoking 2 weeks ago. She is not Covid vaccinated. Patient states laying down seems to make the pain little bit better, being up and around makes it worse. Putting a "little pressure" over the area seems to make it feel a little better as well. She states she last took Tylenol, 2 extra strength tablets at about 5 or 6 this morning. She is allergic to tramadol and Toradol, both of which she states makes her incredibly nauseated and feel "sick". All other review of systems reviewed and negative except as stated. Timing/Duration: 1 Week Severity/Quality: Cramping Location: LUQ Radiation: No Radiation Activities at Onset: None Associated Symptoms: Denies Symptoms Allergies and Home Medications Allergies Coded Allergies: ketorolac tromethamine (Verified Allergy, Intermediate, NAUSEATED, 09/18/13) orange juice (Verified Allergy, Unknown, HIVES, 02/01/15) tramadol (Unverified Allergy, Unknown, 02/01/15) Patient Home Medication List Home Medication List Reviewed: Yes Albuterol (Proventil) 17 Gm Inh, 2 PUFF IH QID PRN for WHEEZING, (Reported) Entered as Reported by: JOAO MARC on 09/18/13 1106 Amoxicillin/Potassium Clav (Augmentin 875-125 Tablet) 1 Each Tablet, 1 EACH PO BID Prescribed by: ESTRELLITA LAKE on 08/13/21 1256 Benzonatate (Tessalon Perles) 100 Mg Capsule, 100 MG PO TID Prescribed by: ESTRELLITA LAKE on 08/13/21 1256 Cephalexin (Cephalexin) 500 Mg Tablet, 500 MG PO TID Prescribed by: LACIE BELL on 12/30/20 1246 Cyclobenzaprine HCl (Cyclobenzaprine HCl) 10 Mg Tablet, 10 MG PO TID, (Reported) Entered as Reported by: SEVEN OLIVER on 06/24/16 134 Desvenlafaxine Succinate (Pristiq) 100 Mg Tab.sr.24h, 100, (Reported) Entered as Reported by: LESLY MORENO on 06/24/14 1100 Gabapentin (Gabapentin) 300 Mg Capsule, Unknown Dose PO, (Reported) Entered as Reported by: SEVEN OLIVER on 06/24/16 134 Hydrocodone Bit/Acetaminophen (Hydrocodon-Acetaminophn 10-500) 1 Each Tablet, 1- 2 TAB PO Q4H PRN for PAIN, (Reported) Entered as Reported by: MARJAN VILLALOBOS on 07/09/122053 Ondansetron (Ondansetron Odt) 8 Mg Tab.rapdis, 8 MG PO Q6H PRN for NAUSEA/VOMITING Prescribed by: SUNDAY ORELLANA on 06/24/14 135 Prednisone (Prednisone) 20 Mg Tab, 40 MG PO DAILY Prescribed by: ESTRELLITA LAKE on 08/13/21 1256 Sertraline HCl (Zoloft) 50 Mg Tablet, 50 MG PO DAILY, (Reported) Entered as Reported by: SEVEN OLIVER on 06/24/16 134 Sumatriptan Succinate (Imitrex) 100 Mg Tablet, 100 MG PO UD PRN for MIGRAINE, (Reported) Entered as Reported by: MARJAN VILLALOBOS on 07/09/122054 Tapentadol HCl (Nucynta) 50 Mg Tablet, Unknown Dose PO, (Reported) Entered as Reported by: SEVEN OLIVER on 06/24/16 134 Zolpidem Tartrate (Ambien) 10 Mg Tablet, 10 MG PO HS, (Reported) Entered as Reported by: SEVEN OLIVER on 06/24/16 134 Review of Systems Review of Systems Constitutional: see HPI EENTM: No Symptoms Reported Respiratory: No Symptoms Reported, Other (Chronic shortness of breath) Cardiovascular: No Symptoms Reported Gastrointestinal: Abdominal Pain (Left upper quad), Other (Chronic nausea) Genitourinary: No Symptoms Reported Musculoskeletal: no symptoms reported Skin: no symptoms reported All Other Systems Reviewed Negative Unless Noted: Yes Past Xpdlfkh-Svzmeu-Knamiz Hx Immunizations Up To Date Tetanus Booster (TDap): Less than 5yrs Past Medical History Surgeries: Yes (RIGHT CTR, LAC repair rt forearm, vena cava filter placement, gastric bypas) 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 Respiratory: Yes Pulmonary Embolism Cardiac: Yes (cardiac catheter 2011 with no coronary artery disease) Deep Vein Thrombosis Neurological: Yes 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 Disorders: No Female 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 Disorders: 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: 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 Sexually Transmitted Disease: No Genitourinary: No Gastrointestinal: Yes (GASTRIC BYPASS) Musculoskeletal: Yes Arthritis Endocrine: No Cancer: No Psychosocial: Yes Anxiety, Depression Integumentary: Yes (CURRENT GENERALIZED VASCULITIS ) Recent Skin Changes Blood Disorders: Yes (HX BLOOD CLOTS IN LUNGS ) Family Medical History Alcoholism 09 BROTHER Family history: Diabetes mellitus 03 FATHER Heart disease 03 FATHER Myocardial infarction 03 MOTHER, Onset:62 No Pertinent Family Hx Physical Exam Vital Signs Vital Signs - First Documented 08/21/21 11:01 Temp 36.5 Pulse 90 Resp 20 B/P (MAP) 135/104 (114) Pulse Ox 98 O2 Delivery Nasal Cannula O2 Flow Rate 2.00 Capillary Refill : Height/Weight/BMI Height: 5'3" Weight: 160lbs. 4.0oz. 72.057251pd; 35.00 BMI Method:Stated General Appearance: WD/WN, no apparent distress HEENT: PERRL/EOMI, other (Appears adequately hydrated) Neck: full range of motion Respiratory: lungs clear, normal breath sounds, no respiratory distress, no accessory muscle use Cardiovascular: regular rate, rhythm Gastrointestinal: normal bowel sounds, non tender, soft, other (Patient points to the left upper quadrant as the area of tenderness. This is not reproducible on physical exam. No distention, involuntary guarding or rebound is noted on examination. No erythema/rash overlying the area of tenderness.) Neurologic/Psychiatric: no motor/sensory deficits, alert, normal mood/affect, oriented x 3 Skin: normal color, warm/dry Progress/Results/Core Measures Results/Orders Lab Results Laboratory Tests Test 08/21/21 11:35 Range/Units White Blood Count 9.7 4.3-11.0 10^3/uL Red Blood Count 4.23 3.80-5.11 10^6/uL Hemoglobin 11.1 L 11.5-16.0 g/dL Hematocrit 36 35-52 % Mean Corpuscular Volume 84 80-99 fL Mean Corpuscular Hemoglobin 26 25-34 pg Mean Corpuscular Hemoglobin Concent 31 L 32-36 g/dL Red Cell Distribution Width 15.5 H 10.0-14.5 % Platelet Count 676 H 130-400 10^3/uL Mean Platelet Volume 9.2 9.0-12.2 fL Immature Granulocyte % (Auto) 1 % Neutrophils (%) (Auto) 73 42-75 % Lymphocytes (%) (Auto) 19 12-44 % Monocytes (%) (Auto) 4 0-12 % Eosinophils (%) (Auto) 2 0-10 % Basophils (%) (Auto) 1 0-10 % Neutrophils # (Auto) 7.0 1.8-7.8 10^3/uL Lymphocytes # (Auto) 1.9 1.0-4.0 10^3/uL Monocytes # (Auto) 0.4 0.0-1.0 10^3/uL Eosinophils # (Auto) 0.2 0.0-0.3 10^3/uL Basophils # (Auto) 0.1 0.0-0.1 10^3/uL Immature Granulocyte # (Auto) 0.1 0.0-0.1 10^3/uL Sodium Level 136 135-145 MMOL/L Potassium Level 4.5 3.6-5.0 MMOL/L Chloride Level 107 98-107 MMOL/L Carbon Dioxide Level 20 L 21-32 MMOL/L Anion Gap 9 5-14 MMOL/L Blood Urea Nitrogen 17 7-18 MG/DL Creatinine 0.97 0.60-1.30 MG/DL Estimat Glomerular Filtration Rate 61 BUN/Creatinine Ratio 18 Glucose Level 99 70-105 MG/DL Calcium Level 9.1 8.5-10.1 MG/DL Corrected Calcium 9.3 8.5-10.1 MG/DL Total Bilirubin 0.2 0.1-1.0 MG/DL Aspartate Amino Transf (AST/SGOT) 11 5-34 U/L Alanine Aminotransferase (ALT/SGPT) 13 0-55 U/L Alkaline Phosphatase 99 40-136 U/L Total Protein 7.1 6.4-8.2 GM/DL Albumin 3.7 3.2-4.5 GM/DL Lipase 30 8-78 U/L My Orders Orders - RON FELDER MD Cbc With Automated Diff (08/21/21 11:18) Comprehensive Metabolic Panel (08/21/21 11:18) Lipase (08/21/21 11:18) Gabapentin Capsule/Tablet (Neurontin Cap (08/21/21 11:30) Medications Given in ED Current Medications Medications Dose Ordered Sig/Amanda Route Start Time Stop Time Status Last Admin Dose Admin Gabapentin 800 mg ONCE ONCE PO 08/21/21 11:30 08/21/21 11:31 DC 08/21/21 11:44 800 MG Vital Signs/I&O 08/21/21 11:01 Temp 36.5 Pulse 90 Resp 20 B/P (MAP) 135/104 (114) Pulse Ox 98 O2 Delivery Nasal Cannula O2 Flow Rate 2.00 Progress Progress Note #1: Time: 11:23 Progress Note Patient states she forgot to take her 800mg Gabapentin this morning and is asking for a dose for her "restless legs" as well. Progress Note #2: Time: 12:07 Progress Note Reviewed patient's labs, they look good except for an increase in total platelets. Chem and CBC good. VSS. Will send Shreyas to [facility]. Encouraged f/u with PCP next tuesday as scheduled and for her to talk to her PCP about chronic pain management. She is comfortable with the plan of care, all questions are sought and answered. Departure Impression Primary Impression: Abdominal pain Qualified Codes: R10.12 - Left upper quadrant pain Disposition: HOME, SELF-CARE Condition: Stable Departure-Patient Inst. Decision time for Depature: 11:16 Referrals: JEIMY FARRIS MD NO,LOCAL PHYSICIAN (PCP) Primary Care Physician Patient Instructions: Abdominal Pain, Adult ED Add. Discharge Instructions: Take the Bentyl, 20 mg every 6 hours as needed for pain. Return to the emergency room for fever associated with worsening pain, black or bloody stools or any other emergent concerning symptoms. Dicyclomine 20mg every 6 hours (30 minutes before eating) as needed for abdominal cramping. Be sure and drink plenty of fluids to stay well hydrated. Bentyl can cause some issues with slowing of bowel movements. Please keep your follow-up appointment with Dr. Farris on Tuesday. Scripts Dicyclomine HCl (Dicyclomine HCl) 20 Mg Tablet 20 MG PO Q6H PRN for abdominal cramping, #30 TAB Prov: RON FELDER MD 08/21/21 RON FELDER MD Aug 21, 2021 11:16
[2021-08-21] MEDS ORDERED: GABAPENTIN 400 MG (NEURONTIN) CAP PO ONE (11:30)
[2021-08-21 11:39] LABS: BASOPHILS # (AUTO) 0.1 10^3/uL (0.0-0.1); BASOPHILS % (AUTO) 1 % (0-10); EOSINOPHILS # (AUTO) 0.2 10^3/uL (0.0-0.3); EOSINOPHILS % (AUTO) 2 % (0-10); HEMATOCRIT 36 % (35-52); HEMOGLOBIN 11.1 g/dL (11.5-16.0); LYMPHOCYTES # (AUTO) 1.9 10^3/uL (1.0-4.0); LYMPHOCYTES % (AUTO) 19 % (12-44); MEAN CORPUSCULAR HEMOGLOBIN 26 pg (25-34); MEAN CORPUSCULAR HGB CONC 31 g/dL (32-36); MEAN CORPUSCULAR VOLUME 84 fL (80-99); MEAN PLATELET VOLUME 9.2 fL (9.0-12.2); MONOCYTES # (AUTO) 0.4 10^3/uL (0.0-1.0); MONOCYTES % (AUTO) 4 % (0-12); NEUTROPHILS % (AUTO) 73 % (42-75); PLATELET COUNT 676 10^3/uL (130-400); WHITE BLOOD COUNT 9.7 10^3/uL (4.3-11.0)
[2021-08-21 11:49] LABS: ALBUMIN 3.7 GM/DL (3.2-4.5); POTASSIUM 4.5 MMOL/L (3.6-5.0)
[2021-08-21 11:50] LABS: CALCIUM 9.1 MG/DL (8.5-10.1)
[2021-08-21 11:51] LABS: TOTAL PROTEIN 7.1 GM/DL (6.4-8.2)
[2021-08-21 11:53] LABS: BILIRUBIN,TOTAL 0.2 MG/DL (0.1-1.0)
[2021-08-21 11:55] LABS: CREATININE SERUM 0.97 MG/DL (0.60-1.30)
[2021-08-21] MEDS ORDERED: DICY20TA10 PO (12:09)
[2021-08-21 12:19] VITALS: BP 139/94
== END 2021-08-21 12:15 | disposition home or self-care (01) ==
LOC: EDUNIT# 10:49 → ER 10:53
DX: R10.12 Left upper quadrant pain (principal); F41.9 Anxiety disorder, unspecified; F32.9 Major depressive disorder, single episode, unspecified; Z79.899 Other long term (current) drug therapy; Z79.52 Long term (current) use of systemic steroids
CPT/HCPCS: 36415; 80053; 83690; 85025; 99283

== ENCOUNTER 2021-10-29 09:09 | Outpatient (RCR) | payer OTHER, MEDICARE ==
[~2021-10-29] VITALS: Ht 160.3 cm; Wt 90.8 kg
[~2021-10-29 09:09] MED LIST changes: +CYCL10TA25 PO; +DICY20TA PO
[2021-10-29 09:25] VITALS: BP 145/89
--- NOTE | 2021-10-29 10:54 | Diagnostic Imaging Report ---
EXAMINATION: Chest 2 view HISTORY: Preoperative evaluation COMPARISON: None available. FINDINGS: Heart size and pulmonary vasculature are normal. The lungs are clear without consolidation, pleural effusion, or pneumothorax. The osseous structures are intact. Spinal stimulator device is present. IMPRESSION: 1. No acute radiographic abnormality in the chest. Dictated by: Dictated on workstation # [id number]
[2021-10-29 11:13] LABS: HEMATOCRIT 34 % (35-52); HEMOGLOBIN 10.5 g/dL (11.5-16.0); MEAN CORPUSCULAR HEMOGLOBIN 26 pg (25-34); MEAN CORPUSCULAR HGB CONC 31 g/dL (32-36); MEAN CORPUSCULAR VOLUME 82 fL (80-99); MEAN PLATELET VOLUME 9.9 fL (9.0-12.2); PLATELET COUNT 426 10^3/uL (130-400); WHITE BLOOD COUNT 8.1 10^3/uL (4.3-11.0)
[2021-10-29 11:18] LABS: BILIRUBIN,URINE NEGATIVE (NEGATIVE); CLARITY,URINE CLEAR; COLOR,URINE YELLOW; GLUCOSE, URINE (UA) NEGATIVE (NEGATIVE); KETONES,URINE NEGATIVE (NEGATIVE); LEUKOCYTE ESTERASE ,URINE NEGATIVE (NEGATIVE); NITRITE,URINE NEGATIVE (NEGATIVE); PROTEIN,URINE NEGATIVE (NEGATIVE)
[2021-10-29 11:30] LABS: BILIRUBIN,TOTAL 0.3 MG/DL (0.1-1.0); CREATININE SERUM 1.12 MG/DL (0.60-1.30); POTASSIUM 4.4 MMOL/L (3.6-5.0); TOTAL PROTEIN 7.2 GM/DL (6.4-8.2)
[2021-10-29 11:33] LABS: ERYTHROCYTE SEDIMENTATION RATE 22 MM/HR (0-30)
[2021-10-29 11:49] LABS: BACTERIA,URINE NEGATIVE /HPF; WBC,URINE 0-2 /HPF
[2021-10-29] MEDS ORDERED: DESV50TA PO (12:39)
[2021-10-29] MEDS ORDERED: ALB0.5V INH (12:39)
[2021-10-29] MEDS ORDERED: SUMA100T2 PO (12:39)
[2021-10-29] MEDS ORDERED: GABA800T10 PO (12:39)
[2021-10-29] MEDS ORDERED: MELO10CA3 PO (12:39)
[2021-10-29] MEDS ORDERED: ARIP10TA55 PO (12:39)
[2021-10-29] MEDS ORDERED: ONDA8TAB13 PO (12:39)
[2021-10-29] MEDS ORDERED: ZOLP12.5 PO (12:39)
[2021-10-29] MEDS ORDERED: HYDR50CA3 PO (12:39)
[2021-10-29] MEDS ORDERED: HYDR-3817 PO (12:39)
== END 2021-10-30 ==
LOC: PREOP 09:09 → EDSTATUS 15:00
PROVIDERS: ATTEND Orthopaedic Surgery
DX: Z01.818 Encounter for other preprocedural examination (principal); M17.11 Unilateral primary osteoarthritis, right knee
CPT/HCPCS: 36415; 71046; 80053; 81000; 85027; 85610; 85652; 86850; 86900; 86901; 87081; 93005

== ENCOUNTER 2021-11-02 12:05 | Outpatient (RCR) | payer MEDICARE, OTHER ==
[~2021-11-02 12:05] MED LIST changes: +ALB0.5V INH; +ARIP10TA55 PO; +GABA800T10 PO; +HYDR-3817 PO; +HYDR50CA3 PO; +MELO10CA3 PO; +ZOLP12.5 PO
[2021-11-04] MEDS ORDERED: morphine PCA 100 MG/100 ML BAG IV PRN (07:30)
[2021-11-04] MEDS ORDERED: NS IV 1000 ML 1,000 ML IV SCH (07:30)
[2021-11-04] MEDS ORDERED: NALOXONE 0.4 MG/ML 1 ML (NARCAN) VIAL IV PRN (07:30)
[2021-11-04] MEDS ORDERED: oxyCODONE/APAP 5/325MG (PERCOCET 5) TABLET PO PRN (07:30)
[2021-11-04] MEDS ORDERED: ONDANSETRON 4 MG/2 ML (SDV) Z0FRAN IVP PRN (07:30)
[2021-11-04] MEDS ORDERED: diphenhydrAMINE 50 MG/ML INJ (BENADRYL) IVP PRN (07:30)
[2021-11-04] MEDS ORDERED: INTRA-ARTICULAR IU ONE ×10 (08:00→10:00)
[2021-11-04] MEDS ORDERED: SENNA W/DOCUSATE (SENOKOT S) TABLET PO SCH (09:00)
[2021-11-04] MEDS ORDERED: APIX5TAB PO (09:10)
[2021-11-04] MEDS ORDERED: INTRA-ARTICULAR IU NR ×5 (09:54)
--- NOTE | 2021-11-04 12:19 | Diagnostic Imaging Report ---
INDICATION: Right knee pain, postoperative AP and lateral views of the right knee show postoperative changes from joint arthroplasty. Alignment is normal. There is no evidence of loosening or acute fracture. IMPRESSION: Good alignment right knee following joint arthroplasty. Dictated by: Dictated on workstation # [id number]
[2021-11-04] MEDS ORDERED: CEFUROXIME INJECTION 750 MG in NS (IVPB) 50 ML IV SCH (15:30)
[2021-11-05 06:57] LABS: HEMOGLOBIN 8.8 g/dL (11.5-16.0)
[2021-11-05] MEDS ORDERED: MULTIVIT W/MINERALS TAB (THERAGRAN M) PO SCH (07:00)
[2021-11-05] MEDS ORDERED: ENOXAPARIN 30 MG/0.3 ML (LOVENOX) SYR SC SCH (08:00)
[2021-11-05] MEDS ORDERED: ASPIRIN E.C. 81 MG (ECOTRIN) TAB PO SCH (09:00)
== END 2021-11-30 | disposition home or self-care (01) ==
LOC: PREOP 12:05
PROVIDERS: ATTEND Orthopaedic Surgery
DX: Z01.818 Encounter for other preprocedural examination (principal)
CPT/HCPCS: 36415; 73560; 85014; 85018; 87635

== ENCOUNTER 2021-11-04 07:30 | Inpatient (IN) | payer MEDICARE, OTHER ==
--- NOTE | 2021-10-30 07:13 | HISTORY AND PHYSICAL ---
DATE OF SERVICE: INPATIENT ADMISSION Date of admission, date of service, date of surgery will be 11/04/2021 for right total knee arthroplasty. HISTORY: The patient is a 51-year-old female with longstanding progressive right knee pain. She has undergone 3 arthroscopies in the past as well as injection. She reports functional impairment because of the knee. She wears a brace. The patient has a history of pulmonary emboli, but has an IVC filter in place and takes Xarelto. Radiographs revealed severe medial and patellofemoral arthrosis. The patient has elected to proceed with surgical intervention, understanding that she will likely require revision at some point in the future due to her young age. REVIEW OF SYSTEMS: No chest pain, no shortness of breath, no dysuria. PAST MEDICAL HISTORY: Anxiety disorder, fibromyalgia, hypertension, wheezing, back pain, COPD, depression, migraines, insomnia, pulmonary embolism, chronic kidney disease. PAST SURGICAL HISTORY: Carpal tunnel release, cholecystectomy, hysterectomy, knee arthroscopy, tubal ligation, gastric bypass, lumbar stimulator, IVC filter and biopsies. FAMILY HISTORY: Significant for ischemic heart disease, Alzheimer's, diabetes, and testicular cancer. PRIMARY CARE PROVIDER: ____. MEDICATIONS: Gabapentin, Eliquis, duloxetine, desvenlafaxine, cyclobenzaprine, aripiprazole, Ambien, omeprazole, meloxicam, Imitrex, hydroxyzine, Ventolin, ondansetron. ALLERGIES: ULTRAM, KETOROLAC. SOCIAL HISTORY: The patient smokes half a pack per day. Denies alcohol use. PHYSICAL EXAMINATION: GENERAL: The patient is well developed, well nourished, in no acute distress. HEENT: Normocephalic, atraumatic. Pupils are equal, round and reactive to light. Oropharynx is clear. NECK: Supple, with no lymphadenopathy. LUNGS: Clear to auscultation bilaterally. HEART: Regular rate and rhythm. ABDOMEN: Soft, nontender, nondistended. EXTREMITIES: The right knee demonstrates varus alignment. She has patellofemoral crepitus and pain with patellar loading. She is tender along the medial femoral condyle. Slight effusions noted. There is no erythema or warmth. Range of motion is 0/2/120. IMPRESSION: Severe right knee osteoarthritis, unresponsive to conservative measures. PLAN: Right total knee arthroplasty. The risks, benefits, options, ramifications and recovery have been discussed at length with the patient. She understands and wishes to proceed. The patient will require regular inpatient admission due to comorbidities, need for physical therapy and pain management. Job ID: [id number] DocumentID: [id number] Dictated Date: 10/28/2021 15:12:26 Chuck Tender Date: 10/28/2021 15:28:47 Dictated By: GÓMEZ FRANK MD
[~2021-11-04] VITALS: Ht 160.3 cm; Wt 90.8 kg
[2021-11-04] VITALS (11 sets, daily range): BP systolic 122–190; BP diastolic 80–112
[2021-11-04] MEDS ORDERED: fentaNYL INJ 100 MCG/2 ML AMP ONE ×2 (08:02→09:47)
[2021-11-04] MEDS ORDERED: proPOfol 200 MG/20 ML (DIPRIVAN) VIAL IV ONE (08:02)
[2021-11-04] MEDS ORDERED: MIDAZOLAM 2 MG/2 ML (VERSED) VIAL ONE (08:02)
[2021-11-04] MEDS ORDERED: LIDOCAINE PF 2% 5 ML (XYLOCAINE) VIAL ONE (08:02)
[2021-11-04] MEDS ORDERED: ONDANSETRON 4 MG/2 ML (SDV) Z0FRAN ONE (08:02)
[2021-11-04] MEDS ORDERED: CEFUROXIME INJECTION 1,500 MG in NS (IVPB) 50 ML IV ONE (08:15)
[2021-11-04] MEDS ORDERED: LACTATED RINGERS 1,000 ML IV PRN (08:15)
--- NOTE | 2021-11-04 09:00 | Progress Note-Pre Operative ---
Pre-Operative Progress Note H&P Reviewed The H&P was reviewed, patient examined and no changes noted. Date Seen by Provider: Nov 04, 2021 Time Seen by Provider: 08:54 Date H&P Reviewed: Nov 04, 2021 Time H&P Reviewed: 07:11 Pre-Operative Diagnosis: right knee primary osteoarthritis GÓMEZ FRANK MD Nov 04, 2021 09:00
--- NOTE | 2021-11-04 09:01 | Progress Note-Post Operative ---
Post-Operative Progess Note Surgeon (s)/Aircraft Electrician (s) Surgeon GÓMEZ FRANK MD Aircraft Electrician: Sky Carrasco Pre-Operative Diagnosis right knee primary osteoarthritis Post-Operative Diagnosis right knee primary osteoarthritis Procedure & Operative Findings Date of Procedure 11/04/21 Procedure Performed/Findings right total knee arthroplasty Anesthesia Type GETA Estimated Blood Loss Estimated blood loss (mL): minimal Specimens/Packing Specimens Removed none Packing: none GÓMEZ FRANK MD Nov 04, 2021 09:01
--- NOTE | 2021-11-04 09:05 | D/C HH Face to Face Order ---
D/C Face to Face Orders Reconcile Patient Problems Problems Reviewed?: Yes Instructions for Patient Via [facility], Patient Instructions/FollowUp: three weeks Physician to follow Patient: three weeks Discharge Diet for Home: Regular Diet Patient Data-Allergies,Ht & Wt Patient Allergies: Coded Allergies: ketorolac tromethamine (Verified Allergy, Intermediate, NAUSEATED, 09/18/13) orange juice (Verified Allergy, Unknown, HIVES, 02/01/15) tramadol (Unverified Allergy, Unknown, 02/01/15) Height (Feet): 5 Height (Inches): 3 Weight (Pounds): 160 Weight (Ounces): 4.0 Home Health Need/Face to Face Date of Face to Face: Nov 04, 2021 Clinical Findings: Muscle weakness, Pain with ambulation, Unsteady gait I have seen Pt [id number]: Yes Discharged To: Home Diagnosis/Conditions: right total knee arthroplasty Patient is Homebound due to: Muscle weakness, Pain w/ambulation Homebound Status Due to the above stated illness, injury or surgical procedure (medical condition or diagnosis) and associated clinical findings, the patient is homebound because of his/her inability to leave home except with aid of a supportive device and/or person AND leaving the home requires a considerable and taxing effort or is medically contraindicated. Pt req the following assistanc: [facility] Nursing Orders Home Health Services Order: Physical Therapy-Evaluate & Treat DC right knee ignacio and apply steri strips 11/18/21 Therapy Orders Therapy Orders: Physical Therapy, PT to assess for OT Therapy Specific Orders: Eval assistive deivces, Teach enviro modifications/safety, Gait training, Increase strength/endurance, Provider maintenance therapy, Restore ROM Certify Stmt I certify that this patient is under my care and that I, a nurse practitioner or a physician; a psychological assistant working with me, had a face to face encounter that - meets the physician face to face encounter requirements with this patient as dated. GÓMEZ FRANK MD Nov 04, 2021 09:05
[2021-11-04] MEDS ORDERED: APIX5TAB PO (09:10)
[2021-11-04] MEDS ORDERED: TRANEXAMIC ACID 100 MG/ML 10 ML INJECTION ONE (09:25)
--- NOTE | 2021-11-04 10:47 | Anesthesia-General Post-Op ---
General Patient Condition Mental Status/LOC: Same as Preop Cardiovascular: Satisfactory Nausea/Vomiting: Absent Respiratory: Satisfactory Pain: Controlled Complications: Absent Post Op Complications Complications None Follow Up Care/Instructions Patient Instructions None needed. Anesthesia/Patient Condition Patient Condition Patient is doing well, no complaints, stable vital signs, no apparent adverse anesthesia problems. No complications reported per nursing. JAYLIN ADAMS CRNA Nov 04, 2021 10:47
[2021-11-04] MEDS ORDERED: morphine INJ 10 MG/ML 1ML (SYR OR VIAL) ONE (10:49)
[2021-11-04] MEDS ORDERED: SEVOFLURANE (ULTANE) 15 ML INHAL SOLN ONE (10:52)
[2021-11-04] MEDS ORDERED: morphine INJ 10 MG/ML 1ML (SYR OR VIAL) IVP ONE (11:00)
[2021-11-04] MEDS ORDERED: PROMETHAZINE INJ 25 MG/ML (PHENERGAN) AMP IVP ONE (11:00)
[2021-11-04] MEDS ORDERED: fentaNYL INJ 100 MCG/2 ML AMP IVP ONE (11:00)
[2021-11-04] MEDS ORDERED: ONDANSETRON 4 MG/2 ML (SDV) Z0FRAN IVP PRN ×2 (11:00→13:15)
[2021-11-04] MEDS ORDERED: MEPERIDINE (DEMEROL) INJ 50 MG/ML IVP ONE (11:00)
--- NOTE | 2021-11-04 11:28 | Progress Note ---
Standard Progress Note Progress Notes/Assess & Plan Date Seen by a Provider: Nov 04, 2021 Time Seen by a Provider: 11:28 Progress/Assessment & Plan no complaints RLE--2 plus DP pulse with brisk cap refill. Intact DF and PF of toes and ankle. Sensation intact throughout s/p RTKA mobilize as able GÓMEZ FRANK MD Nov 04, 2021 11:28
[2021-11-04] MEDS ORDERED: morphine INJ 4 MG/ML 1 ML (VIAL/SYRINGE) ONE (12:12)
[2021-11-04] MEDS ORDERED: morphine INJ 4 MG/ML 1 ML (VIAL/SYRINGE) IVP ONE (12:15)
[2021-11-04] MEDS ORDERED: morphine PCA 100 MG/100 ML BAG IV PRN (13:15)
[2021-11-04] MEDS ORDERED: diphenhydrAMINE 50 MG/ML INJ (BENADRYL) IVP PRN (13:15)
[2021-11-04] MEDS ORDERED: NALOXONE 0.4 MG/ML 1 ML (NARCAN) VIAL IV PRN (13:15)
[2021-11-04] MEDS: NS IV 1000 ML 1,000 ML IV SCH (13:50)
--- NOTE | 2021-11-04 14:04 | Physical Therapy Evaluation ---
PT Evaluation-General Medical Diagnosis Admission Date Nov 04, 2021 at 07:30 Medical Diagnosis: right TKA Onset Date: Nov 04, 2021 Therapy Diagnosis Therapy Diagnosis: impaired mobility, strength, endurance, ROM Height/Weight Height (Feet): 5 Height (Inches): 3 Weight (Pounds): 160 Weight (Ounces): 4.0 Weight Bear Status Right Lower Extremity: Right Weight Bearing/Tolerated Referral Physician: Danilo Reason for Referral: Evaluation/Treatment Medical History Additional Medical History PAST MEDICAL HISTORY: Anxiety disorder, fibromyalgia, hypertension, wheezing, back pain, COPD, depression, migraines, insomnia, pulmonary embolism, chronic kidney disease. PAST SURGICAL HISTORY: Carpal tunnel release, cholecystectomy, hysterectomy, knee arthroscopy, tubal ligation, gastric bypass, lumbar stimulator, IVC filter and biopsies. Reviewed History: Yes Social History Current Living Status: Children Entry Into Home: Stairs With Railing Patient states she has a whole flight of steps to go up at home. She is not very forthcoming with info about her home. Prior Prior Level of Function SCALE: Activities may be completed with or without assistive devices. 4-Dpblqhztpo-ikziqlr completes the activity by him/herself with no assistance from a helper. 5-Set-up or Clean-up Assistance-helper sets up or cleans up; patient completes activity. [place] assists only prior to or following the activity. 4-Supervision or Touching Assistance-helper provides verbal cues and/or touching/steadying and/or contact guard assistance as patient completes activity. Assistance may be provided throughout the activity or intermittently. 3-Partial/Moderate Assistance-helper does LESS THAN HALF the effort. [place] l ifts, holds or supports trunk or limbs, but provides less than half the effort. 2-Substantial/Maximal Assistance-helper does MORE THAN HALF the effort. [place] lifts or holds trunk or limbs and provides more than half the effort. 2-Zbcoofhht-jccjah does ALL the effort. Patient does none of the effort to complete the activity. Or, the assistance of 2 or more helpers is required for t he patient to complete the activity. If activity was not attempted, code reason: 7-Patient Refused. 9-Not Applicable-not attempted and the patient did not perform the activity before the current illness, exacerbation or injury. 10-Not Attempted due to Environmental Limitations-(lack of equipment, weather restraints, etc.). 88-Not Attempted due to Medical Conditions or Safety Concerns. Bed Mobility: 6 Transfers (B,C,W/C): 6 Gait: 6 Stairs: 6 Indoor Mobility (Ambulation): Independent Stairs: Independent PT Evaluation-Current Subjective Patient in bed pre tx, agrees reluctantly to PT, has 10/10 pain in right knee. Patient doesn't have her REPORT DEVELOPER yet, but states she has had some pain meds, she says she will do what she can. Pt/Family Goals to be independent at home Objective Patient Orientation: Person, Place, Situation Attachments: IV ROM/Strength ROM Lower Extremities right knee flexion 45 degrees, extension +3 degrees Sensory Vision: Functional Hearing: Functional Sensation Right Lower Extremit: Intact Sensation Left Lower Extremity: Intact Transfers Roll Left to Right (QC): 4 Sit to Lying (QC): 3 Lying to Sitting/Side of Bed(Q: 3 Patient is able to sit to the side of the bed with min assist but pain is too much for her and she can only sit there for about 15 seconds before needing to lay back down. Min assist for sit to supine. She is able to scoot up in bed on her own. Balance Sitting Static: Normal Sitting Dynamic: Normal Treatment right side TKA protocol x10 (AP, QS, HS, SAQ, SLR), CPM donned and fit to leg and set to 40/-2 degrees Assessment/Needs Patient in bed post tx with nurse call, phone, pierce, SCD's, [facility], all needs met. Patient has impaired mobility, strength, endurance, ROM. Her pain was too much to do more than sit on the side of the bed this afternoon. Rehab Potential: Fair PT Half-Way Goals Buckle Sorter Goals PT Buckle Sorter Goals Time Frame: Nov 11, 2021 Roll Left & Right (QC): 6 Sit to Lying (QC): 4 Lying-Sitting on Side/Bed(QC): 4 Sit to Stand (QC): 4 Chair/Hhn-pe-Qhcsu Xfer(QC): 4 Walk 10 feet (QC): 4 Walk 50ft with 2 Turns (QC): 4 1 Step (curb) (QC): 4 4 Steps (QC): 4 PT Plan Problem List Problem List: Activity Tolerance, Functional Strength, Safety, Balance, Gait, Transfer, Bed Mobility, ROM Treatment/Plan Treatment Plan: Continue Plan of Care Treatment Plan: Bed Mobility, Education, Functional Activity Rayne, Functional Strength, Gait, Safety, Therapeutic Exercise, Transfers Treatment Duration: Nov 11, 2021 Frequency: 11 times per week Estimated Hrs Per Day: .25 hour per day Patient and/or Family Agrees t: Yes Safety Risks/Education Patient Education: Correct Positioning, Safety Issues Teaching Recipient: Patient Teaching Methods: Demonstration, Discussion Response to Teaching: Reinforcement Needed Discharge Recommendations Plan Patient will perform bed mobility and transfer training, balance and endurance training, functional strengthening, gait training, stair training, and education, to improve functional mobility and independence at home. Therapy Discharge Recommendati: Home & Family, Post Acute PT Time/GCodes Time In: 1331 Time Out: 1345 Total Billed Treatment Time: 14 Total Billed Treatment 1 visit CHRISTIE KC PT Nov 04, 2021 14:04
--- NOTE | 2021-11-04 14:28 | Progress Note ---
Standard Progress Note Progress Notes/Assess & Plan Date Seen by a Provider: Nov 04, 2021 Time Seen by a Provider: 14:26 Progress/Assessment & Plan no complaints RLE--2 plus DP pulse with brisk cap refill. Intact DF and PF of toes and ankle. Sensation intact throughout s/p RTKA mobilize as able Final Diagnosis addendum Radiographs--HW well positioned without fracture GÓMEZ FRANK MD Nov 04, 2021 14:28
--- NOTE | 2021-11-04 15:11 | OPERATIVE REPORT ---
DATE OF SERVICE: 11/04/2021 PREOPERATIVE DIAGNOSIS: Right knee primary osteoarthritis. POSTOPERATIVE DIAGNOSIS: Right knee primary osteoarthritis. PROCEDURE: Right total knee arthroplasty. SURGEON: Drew Frank MD SMALL PRODUCTS I ASSEMBLER: Sky Carrasco, who assisted throughout the procedure and closed the incision. ANESTHESIA: General endotracheal by Rupesh Rosenberg CRNA. TOURNIQUET TIME: Approximately 58 minutes at 300 mmHg. ESTIMATED BLOOD LOSS: Minimal. DRAINS: None. COMPLICATIONS: None. POSTOPERATIVE PLAN: Routine total knee arthroplasty protocol. The patient was transferred to the recovery room awake and stable condition. MATERIALS: Microport cemented size 3 femur, cemented size 3 tibia with a 12 mm insert and cemented size 29 patellar button. STATEMENT OF MEDICAL NECESSITY: The patient is a 51-year-old female with progressively worsening right knee pain. She has undergone treatment with multiple arthroscopies as well as injections, but reported persistent pain with loss of function. Because of this, she elected to proceed with total knee arthroplasties. Radiographs revealed severe medial and patellofemoral arthrosis. DESCRIPTION OF PROCEDURE: After risks and benefits of the procedure were discussed and questions were answered, an informed consent was signed and placed on chart. The operative site was confirmed in the preoperative holding area initialed by the surgeon. The patient was then transferred to the operating room. After adequate levels of general endotracheal anesthetic were obtained, a timeout was called, confirming the operative site. The right lower extremity was prepped and draped in the usual sterile fashion with the leg elevated and the knee flexed. The tourniquet was inflated to 300 mmHg. A standard anterior approach was utilized. Hemostasis was obtained with cautery and medial parapatellar arthrotomy was performed leaving 1 cm cuff on the patella for later reattachment. A portion of the fat pad was resected. A subperiosteal release was then carefully performed in the proximal medial femur. The ACL was resected. The intramedullary guide was passed into the femur. The distal cutting block was placed and distal cut was made. The femur was sized to a size 3. The 3 cutting block was placed parallel to the epicondylar axis and cuts were made from posterior to anterior. A subperiosteal release was then carefully performed on posterior distal femur, being careful to stay on the bony surface. The intramedullary guide was then passed into the tibia. The cutting block was placed and the cut was made. The drop paulina transected the intermalleolar axis prior to the cut being made. Three baseplate was positioned. The drop paulina transected the intermalleolar axis and this was prepared with the drill and keel punch. The femoral trial was placed. The trochlear cut was made. The patella was then prepared by resecting 10 mm off the undersurface. The peg guide was placed and the peg holes were drilled. The trials were inserted. A 12 mm insert was placed. Full extension was easily obtained. A 120 degrees of flexion with gravity was easily obtained. The patella tracked well. There was no anterior/posterior or medial/lateral laxity in flexion or extension. The trials were removed. The joint was irrigated with pulse lavage. Periarticular block was placed in the posterior capsule, medial and lateral retinaculum, extensor mechanism, subcutaneous tissues. The bone ends were irrigated and dried and the tibial baseplate was cemented into position. Excessive cement was removed. Superior surface was irrigated and dried and the polyethylene insert was placed. Distal femur was irrigated and dried and the femoral prosthesis was cemented into position. Excessive cement was removed. The knee was brought out into full extension until cement had cured. The undersurface of patella was irrigated and dried. The patellar button was cemented into position. Excessive cement was removed. Once the cement had cured, the knee was taken through range of motion. Full extension was easily obtained under 20 degrees of flexion with gravity was easily obtained. The patella tracked well. There was no anterior/posterior or medial/lateral laxity in flexion or extension. The joint was further irrigated with pulse lavage. Arthrotomy was closed with #2 Tevdek in zajwoy-pn-wzrib interrupted fashion. The knee was flexed. The repair was stable. Subcutaneous tissues were irrigated with pulse lavage using a total of 6 liters throughout the procedure. A 0 Vicryl was used for deep subcutaneous layer, 2-0 Vicryl for the superficial subcutaneous layer. Osmin used on the skin. A soft dressing was applied and the tourniquet was deflated. The patient was transferred to the recovery room awake and in stable condition. Job ID: [id number] DocumentID: [id number] Dictated Date: 11/04/2021 10:38:25 Nursing Student Date: 11/04/2021 15:10:44 Dictated By: DREW FRANK MD
[2021-11-04] MEDS: oxyCODONE/APAP 5/325MG (PERCOCET 5) TABLET PO PRN ×4 (15:50→22:34)
[2021-11-04] MEDS ORDERED: RT-ALBUTEROL SULF 2.5 MG/3 ML PRE-MIX VIAL INH SCH (16:45)
[2021-11-04] MEDS ORDERED: ONDANSETRON 4 MG (ZOFRAN) ORAL DISSOLVE TAB PO PRN (17:45)
--- NOTE | 2021-11-04 18:25 | Consultation - Hospitalist ---
CJ COATS 11/04/21 1825: HPI History of Present Illness: HPI/Chief Complaint Patient here today for total right knee arthroplasty. Operation performed this morning. She had chronic osteoarthritis in right knee. History of 3 arthroscopies before replacement. No complaints other than knee pain. Rates it was 15/10 when resting and 20/10 when attempting to move knee. PT visited a few minutes before our encounter. During our discussion, patient developed frontal headache. She does have a history of migraines. Source: patient, other (Orthopedic H&P) Date Seen 11/04/21 Attending Physician Drew Madrid MD PCP No,Local Physician Referring Physician Date of Admission Nov 04, 2021 at 07:30 Home Medications & Allergies Home Medications Reviewed patient Home Medication Reconciliation performed by pharmacy medication reconciliations laboratory mechanical technician and/or nursing. Patients Allergies have been reviewed. Allergies Allergies Coded Allergies ketorolac tromethamine (Verified Allergy, Intermediate, NAUSEATED, 09/18/13) orange juice (Verified Allergy, Unknown, HIVES, 02/01/15) tramadol (Unverified Allergy, Unknown, 02/01/15) Past Lpoolho-Lqfyxd-Juzobp Hx Patient Social History Tobacco Use?: Yes Tobacco type used: Cigarettes Smoking Status: Current Everyday Smoker Substance use?: No Alcohol Use?: No Pt feels they are or have been: No Immunizations Up To Date First/Initial COVID19 Vaccinat: NO Second COVID19 Vaccination Clemente: NO Tetanus Booster (TDap): Less Than 5 Years Seasonal Allergies Seasonal Allergies: No Current Status Advance Directives: No Communicates: Verbally Primary Language: [place]gu[place] Sensory deficits: Vision impairment Implanted or Applied Medical D: Other Past Medical History Surgeries: Abdominal (gastric bypass), Gallbladder, 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, Orthopedic, Tubal Ligation, Vascular Surgery Pulmonary Embolism, COPD Currently Using CPAP: No Angina, Deep Vein Thrombosis (IVC filter in place), Hypertension Headaches /Migraines, Neuropathy (sciatica, chronic pain) 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 PE/DVT with Yelena Filter Placement 2. Anxiety 3. Fibromyalgia 4. Chronic Insomnia 5. Tobaccoism 6. Vitamin B12 Deficiency secondary to gastric bypass 7. HTN 8. Migraines 9. Seasonal Allergies 10. History of ETOH and Elicit drug use, currently denies 11. Arthritis 12. Unspecified Mood Disorder Past Surgical History 1. Cardiac Catheterization with normal coronaries per Baquir 2 years ago 2. Gastric Bypass- 2011 3. Bailey filter placement by Dr. Hadley 2011 4. 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 5. Tubal Ligation 6. LEEP prior to 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 7. Cholecystectomy 8. 2 Knee on bilateral knees, needing third scope on right knee with Dr. Rausch with chondromalacia. Family Medical History Alcoholism 09 BROTHER Family history: Diabetes mellitus 03 FATHER Heart disease 03 FATHER Myocardial infarction 03 MOTHER, Onset:62 No Pertinent Family Hx Review of Systems Constitutional: no symptoms reported EENTM: no symptoms reported Respiratory: no symptoms reported Cardiovascular: No chest pain Gastrointestinal: No abdominal pain Musculoskeletal: joint pain Psychiatric/Neurological: Headache Physical Exam Physical Exam Vital Signs Vital Signs - First Documented 11/04/21 07:30 Temp 36.2 Pulse 85 Resp 20 B/P (MAP) 157/92 (113) Pulse Ox 94 O2 Delivery Room Air Capillary Refill : Less Than 3 Seconds Height, Weight, BMI Height: 5'3" Weight: 160lbs. 4.0oz. [id number]; 35.33 BMI Method:Stated General Appearance: No Apparent Distress Respiratory: Lungs Clear, Normal Breath Sounds, No Accessory Muscle Use, No Respiratory Distress Cardiovascular: Regular Rate, Rhythm, No Edema, No Murmur Extremity: No Pedal Edema Neurologic/Psychiatric: Alert, Normal Mood/Affect Skin: Normal Color, Warm/Dry Results Results/Procedures Labs Patient resulted labs reviewed. Imaging: Reviewed Imaging Films, Reviewed Imaging Report Imaging right knee x-ray Meds meloxicam, sertraline, aripiprazole, aspirin, lovenox, venlafaxine, hydroxyzine, zolpidem, gabapentin, senokot, ondansetron, tizanidine, albuterol, diphenhydramine, percocet, morphine, cefuroxime Procedures right total knee arthroplasty Assessment/Plan Assessment and Plan Assess & Plan/Chief Complaint Knee arthroplasty (right), knee pain * Chronic OA in right knee * Surgery performed by Dr. Madrid 11/04/21 * Post-op knee x-ray with good alignment > Continue post-operative antibiotics. PRN percocet and morphine for pain relief. Continue with PT Hypertension * History of hypertension, but has but untreated for past 1 year * Acute high blood pressures post op ranging ~185/100. Reduced to 152/90 in afternoon > No intervention at this time. If BPs continue to be high, will consider starting ACEi. Depression, anxiety > WEBLOGIC ADMINISTRATOR aripiprazole, sertraline, hydroxyzine Chronic pain, fibromyalgia, sciatica > WEBLOGIC ADMINISTRATOR desvenlafaxine, tizanidine, meloxicam, gabapentin COPD > PRN albuterol Nausea, vomiting > PRN ondansetron h/o migraine headaches > Hold sumatriptan Insomnia > WEBLOGIC ADMINISTRATOR zolpidem qhs DVT prophylaxis > lovenox Bowel prophylaxis > senokot ALMA NICHOLAS MD 11/04/21 2148: Past Ndspgqv-Pvkwrp-Furcmc Hx Family Medical History Alcoholism 09 BROTHER Family history: Diabetes mellitus 03 FATHER Heart disease 03 FATHER Myocardial infarction 03 MOTHER, Onset:62 Supervisory-Addendum Brief Verification & Attestation Participated in pt care: history, MDM, physical Personally performed: exam, history, MDM Care discussed with: Medical Student Procedures: n/a Verification and Attestation of Medical Student E/M Service I reviewed medical student documentation. Changing home cyclobenzaprine to tizanidine due to on multiple serotinergic medications. I personally performed the physical exam and medical decision making. Alma Nicholas, Nov 04, 2021,21:48 CJ COATS Nov 04, 2021 18:25 ALMA NICHOLAS MD Nov 04, 2021 21:48
[2021-11-04] MEDS: GABAPENTIN 400 MG (NEURONTIN) CAP PO SCH (20:08)
[2021-11-04] MEDS: SENNA W/DOCUSATE (SENOKOT S) TABLET PO SCH (21:00)
[2021-11-04] MEDS: CEFUROXIME INJECTION 750 MG in NS (IVPB) 50 ML IV SCH (21:37)
[2021-11-04] MEDS: hydrOXYzine (VISTARIL/ATARAX) 25 MG capsule/tablet PO SCH (21:37)
[2021-11-04] MEDS: ZOLPIDEM 5 MG (AMBIEN) TAB PO SCH (21:37)
[2021-11-05] MEDS: oxyCODONE/APAP 5/325MG (PERCOCET 5) TABLET PO PRN ×7 (01:07→23:01)
[2021-11-05] MEDS: NS IV 1000 ML 1,000 ML IV SCH ×2 (02:40→13:24)
[2021-11-05 03:40] VITALS: BP 140/77
[2021-11-05] MEDS: VENlafaxine XR 75 MG (EFFEXOR XR) CAP PO SCH (06:08)
[2021-11-05] MEDS: CEFUROXIME INJECTION 750 MG in NS (IVPB) 50 ML IV SCH (06:08)
[2021-11-05] MEDS: hydrOXYzine (VISTARIL/ATARAX) 25 MG capsule/tablet PO SCH ×3 (06:09→22:50)
[2021-11-05] MEDS: MULTIVIT W/MINERALS TAB (THERAGRAN M) PO SCH (06:09)
--- NOTE | 2021-11-05 07:51 | Progress Note ---
Standard Progress Note Progress Notes/Assess & Plan Date Seen by a Provider: Nov 05, 2021 Time Seen by a Provider: 07:49 Progress/Assessment & Plan no complaints RLE--2 plus DP pulse with brisk cap refill. Intact DF and PF of toes and ankle. Sensation intact throughout s/p RTKA mobilize as able Final Diagnosis feeling better Vital Signs Date Time Temp Pulse Resp B/P (MAP) Pulse Ox O2 Delivery O2 Flow Rate FiO2 11/05/21 03:40 36.6 76 18 140/77 (98) 94 Room Air 11/04/21 23:15 37.1 88 16 122/80 (94) 94 Room Air 11/04/21 20:19 36.4 92 20 158/95 (116) 95 Room Air 11/04/21 20:10 Room Air 11/04/21 16:14 152/90 (110) 11/04/21 16:00 36.3 88 20 95 Room Air 11/04/21 15:12 Room Air 11/04/21 11:40 36.6 92 22 180/90 (120) 97 Room Air 11/04/21 11:40 Room Air 11/04/21 11:26 36.7 20 183/99 (127) 98 Room Air 11/04/21 11:20 16 183/98 (126) 99 OxyMask 10 11/04/21 11:10 OxyMask 10 11/04/21 11:10 18 185/108 (133) 98 OxyMask 10 11/04/21 11:00 18 181/112 (135) 98 OxyMask 10 11/04/21 10:50 16 190/110 (136) 99 OxyMask 10 11/04/21 10:42 36.6 16 135/88 (104) 97 OxyMask 10 11/04/21 10:42 OxyMask 10 I & O 11/05/21 07:00 Intake Total 3180 ml Output Total 1500 ml Balance 1680 ml RLE--dressing intact. Intact DF and PF of toes and ankle with intact sensation throughout. No calf tenderness s/p R TKA explained to the patient the importance of ambulation and PT GÓMEZ FRANK MD Nov 05, 2021 07:51
[2021-11-05] MEDS: MELOXICAM 7.5 MG (MOBIC) TABLET PO SCH (08:53)
[2021-11-05] MEDS: SENNA W/DOCUSATE (SENOKOT S) TABLET PO SCH ×2 (08:53→22:51)
[2021-11-05] MEDS: ASPIRIN E.C. 81 MG (ECOTRIN) TAB PO SCH (08:53)
[2021-11-05] MEDS: GABAPENTIN 400 MG (NEURONTIN) CAP PO SCH ×4 (08:53→22:51)
[2021-11-05] MEDS: ENOXAPARIN 30 MG/0.3 ML (LOVENOX) SYR SC SCH ×2 (08:53→22:51)
[2021-11-05] MEDS: SERTRALINE 50 MG (ZOLOFT) TABLET PO SCH (08:53)
[2021-11-05 08:59] VITALS: BP 121/73
--- NOTE | 2021-11-05 09:01 | Anesthesia-General Post-Op ---
General Patient Condition Mental Status/LOC: Same as Preop Cardiovascular: Satisfactory Nausea/Vomiting: Absent Respiratory: Satisfactory Pain: Controlled Complications: Absent Post Op Complications Complications None Follow Up Care/Instructions Patient Instructions None needed. Anesthesia/Patient Condition Patient Condition Patient is doing well, no complaints, stable vital signs, no apparent adverse anesthesia problems. No complications reported per nursing. MOOSE MCCAULEY CRNA Nov 05, 2021 09:01
[2021-11-05] MEDS ORDERED: INTRA-ARTICULAR IU NR ×5 (09:54)
--- NOTE | 2021-11-05 10:54 | Physical Therapy Daily Note ---
PT Daily Note-Current Subjective Patient states, "I can't stand or walk." Agrees to PT. Pain Numeric Pain Scale: 10-Worst Possible Pain Location: Right Location Body Site: Knee Pain Description: Acute Mental Status Patient Orientation: Normal For Age Attachments: Antonio Catheter, IV Transfers SCALE: Activities may be completed with or without assistive devices. 5-Kjtcfkpypi-wbkazme completes the activity by him/herself with no assistance from a helper. 5-Set-up or Clean-up Assistance-helper sets up or cleans up; patient completes activity. [place] assists only prior to or following the activity. 4-Supervision or Touching Assistance-helper provides verbal cues and/or touching/steadying and/or contact guard assistance as patient completes activity. Assistance may be provided throughout the activity or intermittently. 3-Partial/Moderate Assistance-helper does LESS THAN HALF the effort. [place] lifts, holds or supports trunk or limbs, but provides less than half the effort. 2-Substantial/Maximal Assistance-helper does MORE THAN HALF the effort. [place] lifts or holds trunk or limbs and provides more than half the effort. 1-Wkzguffgh-ororep does ALL the effort. Patient does none of the effort to complete the activity. Or, the assistance of 2 or more helpers is required for the patient to complete the activity. If activity was not attempted, code reason: 7-Patient Refused. 9-Not Applicable-not attempted and the patient did not perform the activity before the current illness, exacerbation or injury. 10-Not Attempted due to Environmental Limitations-(lack of equipment, weather restraints, etc.). 88-Not Attempted due to Medical Conditions or Safety Concerns. Sit to Lying (QC): 6 Lying to Sitting/Side of Bed(Q: 4 Sit to Stand (QC): 4 Chair/Qkz-df-Epxws Xfer(QC): 4 CGA for safety for OOB activity Weight Bearing Right Lower Extremity: Right Weight Bearing/Tolerated Gait Training Does the Patient Walk?: Yes Distance: 250' Walk 10 feet (QC): 4 Walk 50 ft with 2 Turns(QC): 4 Walk 150 ft (QC): 4 Gait Assistive Device: FWW CGA/slow, steady, slightly antalgic/VC's for body placement in FWW Exercises Supine Ex: Ankle pumps, Quad Set, Heel Slides, Straight leg raise Supine Reps: 15 Seated Therapy Exercises: Long arc quads Seated Reps: 15 Assessment Current Status: Excellent Progress Much improved on this date. Patient is CGA for safety only. Does resist flexion with exercise. Patient up in recliner with needs met. PT Informatica Mdm Developer Goals Penitentiary Goals PT Penitentiary Goals Time Frame: Nov 11, 2021 Roll Left & Right (QC): 6 Sit to Lying (QC): 4 Lying-Sitting on Side/Bed(QC): 4 Sit to Stand (QC): 4 Chair/Rig-vn-Tonde Xfer(QC): 4 Walk 10 feet (QC): 4 Walk 50ft with 2 Turns (QC): 4 1 Step (curb) (QC): 4 4 Steps (QC): 4 PT Plan Treatment/Plan Treatment Plan: Continue Plan of Care Treatment Plan: Bed Mobility, Education, Functional Activity Rayne, Functional Strength, Gait, Safety, Therapeutic Exercise, Transfers Treatment Duration: Nov 11, 2021 Frequency: 11 times per week Estimated Hrs Per Day: .25 hour per day Patient and/or Family Agrees t: Yes Time/GCodes Time In: 825 Time Out: 848 Total Billed Treatment Time: 23 Total Billed Treatment 1 visit EX 13 min GT 10 min NO WYLIE PT Nov 05, 2021 10:54
[2021-11-05 12:02] VITALS: BP 111/73
--- NOTE | 2021-11-05 12:07 | Occupational Therapy Eval ---
OT Evaluation-General/PLF Medical Diagnosis Admission Date Nov 04, 2021 at 07:30 Medical Diagnosis: right TKA Onset Date: Nov 04, 2021 Therapy Diagnosis Therapy Diagnosis: reduced adl status Height/Weight Height (Feet): 5 Height (Inches): 3 Weight (Pounds): 160 Weight (Ounces): 4.0 Precautions Precautions/Isolations: Fall Prevention, Standard Precautions Referral Physician: Danilo Referral Reason: Evaluation/Treatment Medical History Current History post op day 1, s/p R TKA Reviewed History: Yes Social History Home: Multilevel Current Living Status: Children Entry Into Home: Stairs With Railing Pt reports living with family in a multilevel home. Bed/bath on second floor, unsure if she can stay on main level. Reports indep with adls and shares all iadl responsibilities with family. 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 ADL-Prior Level of Function SCALE: Activities may be completed with or without assistive devices. 8-Xdsasgcpos-rymzbhw completes the activity by him/herself with no assistance from a helper. 5-Set-up or Clean-up Assistance-helper sets up or cleans up; patient completes activity. [place] assists only prior to or following the activity. 4-Supervision or Touching Assistance-helper provides verbal cues and/or touching/steadying and/or contact guard assistance as patient completes activity. Assistance may be provided throughout the activity or intermittently. 3-Partial/Moderate Assistance-helper does LESS THAN HALF the effort. [place] lifts, holds or supports trunk or limbs, but provides less than half the effort. 2-Substantial/Maximal Assistance-helper does MORE THAN HALF the effort. [place] lifts or holds trunk or limbs and provides more than half the effort. 2-Mzwhdhsbd-ulrjva does ALL the effort. Patient does none of the effort to complete the activity. Or, the assistance of 2 or more helpers is required for the patient to complete the activity. If activity was not attempted, code reason: 7-Patient Refused. 9-Not Applicable-not attempted and the patient did not perform the activity before the current illness, exacerbation or injury. 10-Not Attempted due to Environmental Limitations-(lack of equipment, weather restraints, etc.). 88-Not Attempted due to Medical Conditions or Safety Concerns. Self Care: Independent Functional Cognition: Independent DME/Equipment: Grab Bars, Tub/Shower Drive Self: Yes OT Current Status Subjective Reports significant pain and more than 4 hours from time of last pain pill. RN notified. Appearance Left supine in bed, all needs within reach. Mental Status/Objective Patient Orientation: Person, Place, Situation Attachments: Antonio Catheter, IV Current Upper Extremity ROM WNL Upper Extremity Strength 4/5 throughout ADL-Treatment Pt refused all OOB activity until pain meds are given. RN notified. Per physical therapy note, pt ambulated 250 feet with CGA. Pt is somewhat resistant with participation and reports if she needs help with adls, she has assistance at home. OT discussed bathing routine including care of incision during task and use of DME/AE. Pt verbalizes understanding. Education OT Patient Education: Modified ADL techniques Teaching Recipient: Patient Teaching Methods: Discussion Response to Teaching: Verbalize Understanding, Reinforcement Needed OT [employer] Special[employer] Cook Goals [employer] Special[employer] Cook Goals Time Frame: Nov 13, 2021 Oral Hygiene (QC): 5 Toileting Hygiene (QC): 4 Shower/Bathe Self (QC): 4 Upper Body Dressing (QC): 5 Lower Body Dressing (QC): 5 On/Off Footwear (QC): 3 1=Demonstrate adherence to instructed precautions during ADL tasks. 2=Patient will verbalize/demonstrate understanding of assistive devices/modifications for ADL. 3=Patient will improve strength/tolerance for activity to enable patient to perform ADL's. OT Education/Plan Discharge Recommendations Plan/Recommendations: Continue POC Target Placement ongoing assessment due to limited participation Treatment Plan/Plan of Care Treatment,Training & Education: Yes Patient would benefit from OT for education, treatment and training to promote independence in ADL's, mobility, safety and/or upper extremity function for ADL's. Plan of Care: ADL Retraining, Functional Mobility, UE Funct Exercise/Act Treatment Duration: Nov 13, 2021 Frequency: 5 times per week Estimated Hrs Per Day: .25 hour per day Rehab Potential: Fair Time/GCodes Start Time: 11:27 Stop Time: 11:36 Total Time Billed (hr/min): 9 Billed Treatment Time 1 visit Mila Murrieta OT Nov 05, 2021 12:07
--- NOTE | 2021-11-05 13:32 | Physical Therapy Daily Note ---
PT Daily Note-Current Subjective Patient agrees to PT. Pain Numeric Pain Scale: 10-Worst Possible Pain Location: Right Location Body Site: Knee Pain Description: Acute Mental Status Patient Orientation: Normal For Age Attachments: Antonio Catheter, IV Transfers SCALE: Activities may be completed with or without assistive devices. 5-Olzqsydxzg-rxhuahm completes the activity by him/herself with no assistance from a helper. 5-Set-up or Clean-up Assistance-helper sets up or cleans up; patient completes activity. [place] assists only prior to or following the activity. 4-Supervision or Touching Assistance-helper provides verbal cues and/or touc camila/steadying and/or contact guard assistance as patient completes activity. Assistance may be provided throughout the activity or intermittently. 3-Partial/Moderate Assistance-helper does LESS THAN HALF the effort. [place] lifts, holds or supports trunk or limbs, but provides less than half the effort. 2-Substantial/Maximal Assistance-helper does MORE THAN HALF the effort. [place] lifts or holds trunk or limbs and provides more than half the effort. 9-Vmjmxhoan-marjgl does ALL the effort. Patient does none of the effort to complete the activity. Or, the assistance of 2 or more helpers is required for the patient to complete the activity. If activity was not attempted, code reason: 7-Patient Refused. 9-Not Applicable-not attempted and the patient did not perform the activity before the current illness, exacerbation or injury. 10-Not Attempted due to Environmental Limitations-(lack of equipment, weather restraints, etc.). 88-Not Attempted due to Medical Conditions or Safety Concerns. Lying to Sitting/Side of Bed(Q: 6 Sit to Stand (QC): 4 Chair/Gvj-ox-Nnnxi Xfer(QC): 4 SBA Weight Bearing Right Lower Extremity: Right Weight Bearing/Tolerated Gait Training Does the Patient Walk?: Yes Distance: 300' Walk 10 feet (QC): 4 Walk 50 ft with 2 Turns(QC): 4 Walk 150 ft (QC): 4 Gait Assistive Device: FWW SBA/slow, antalgic gait sequence Exercises Supine Ex: Ankle pumps, Quad Set, Heel Slides, Straight leg raise Supine Reps: 15 Seated Therapy Exercises: Long arc quads Seated Reps: 15 Assessment Patient up in recliner after session. Much improved this p.m. as well. Continue to increase activity. ROM right knee 5-75 degrees AROM PT Remote Broadcast Engineer Goals Long-Term Goals PT Long-Term Goals Time Frame: Nov 11, 2021 Roll Left & Right (QC): 6 Sit to Lying (QC): 4 Lying-Sitting on Side/Bed(QC): 4 Sit to Stand (QC): 4 Chair/Isp-uy-Sxdxd Xfer(QC): 4 Walk 10 feet (QC): 4 Walk 50ft with 2 Turns (QC): 4 1 Step (curb) (QC): 4 4 Steps (QC): 4 PT Plan Treatment/Plan Treatment Plan: Continue Plan of Care Treatment Plan: Bed Mobility, Education, Functional Activity Rayne, Functional Strength, Gait, Safety, Therapeutic Exercise, Transfers Treatment Duration: Nov 11, 2021 Frequency: 11 times per week Estimated Hrs Per Day: .25 hour per day Patient and/or Family Agrees t: Yes Time/GCodes Time In: 1250 Time Out: 1313 Total Billed Treatment Time: 23 Total Billed Treatment 1 visit EX 14 min GT 9 min NO WYLIE PT Nov 05, 2021 13:32
[2021-11-05 16:00] VITALS: BP 151/87
[2021-11-05 19:36] VITALS: BP 132/79
[2021-11-05] MEDS: ZOLPIDEM 5 MG (AMBIEN) TAB PO SCH (22:50)
[2021-11-06 00:25] VITALS: BP 143/83
--- NOTE | 2021-11-06 00:45 | DISCHARGE SUMMARY ---
DATE OF SERVICE: DIAGNOSES: 1. Right knee primary osteoarthritis. 2. Anxiety disorder. 3. Fibromyalgia. 4. Hypertension. 5. Chronic obstructive pulmonary disease. 6. Back pain. 7. Depression. 8. Migraines. 9. History of pulmonary embolism. 10. Chronic kidney disease. PROCEDURE: Right total knee arthroplasty. SUMMARY: The patient is a 51-year-old female who underwent a right total knee arthroplasty on the day of admission. Postoperatively, she progressed well. At time of discharge, her wound was clean and dry. She had no calf tenderness. Negative Homans sign. She was tolerating a diet well and tolerating pain with oral pain medication. CONDITION AT DISCHARGE: Good. DISCHARGE DIET: Regular. ACTIVITIES: Weightbearing as tolerated with a walker. FOLLOWUP: Followup is in three weeks. Home physical therapy will be arranged. DISCHARGE MEDICATIONS: Home medications plus Percocet as needed for pain. Job ID: [id number] DocumentID: [id number] Dictated Date: 11/05/2021 18:11:29 Radiopharmacist Date: 11/06/2021 00:45:40 Dictated By: GÓMEZ FRANK MD
[2021-11-06] MEDS: oxyCODONE/APAP 5/325MG (PERCOCET 5) TABLET PO PRN ×3 (04:24→09:55)
[2021-11-06 04:30] VITALS: BP 179/88
[2021-11-06] MEDS: NS IV 1000 ML 1,000 ML IV SCH (04:30)
--- NOTE | 2021-11-06 07:04 | Progress Note ---
Standard Progress Note Progress Notes/Assess & Plan Date Seen by a Provider: Nov 06, 2021 Time Seen by a Provider: 07:03 Progress/Assessment & Plan no complaints RLE--2 plus DP pulse with brisk cap refill. Intact DF and PF of toes and ankle. Sensation intact throughout s/p RTKA mobilize as able Final Diagnosis doing better Vital Signs Date Time Temp Pulse Resp B/P (MAP) Pulse Ox O2 Delivery O2 Flow Rate FiO2 11/06/21 05:37 16 11/06/21 04:30 38.9 94 16 179/88 (118) 94 Room Air 11/06/21 00:25 37.2 98 12 143/83 (103) 92 Room Air 11/05/21 20:00 Room Air 11/05/21 19:36 37.3 96 12 132/79 (96) 98 Room Air 11/05/21 16:00 37.0 98 20 151/87 (108) 92 Room Air 11/05/21 12:02 36.2 92 18 111/73 (86) 92 Room Air 11/05/21 08:59 36.7 97 22 121/73 (89) 95 Room Air 11/05/21 08:00 Room Air I & O 11/06/21 06:59 Intake Total 1740 ml Output Total 550 ml Balance 1190 ml RLE--incision clean and dry. No calf tenderness. Neg Stanton's s/p RTKA doing well DC after PT today GÓMEZ FRANK MD Nov 06, 2021 07:04
[2021-11-06] MEDS ORDERED: morphine INJ 4 MG/ML 1 ML (VIAL/SYRINGE) IVP PRN (07:15)
[2021-11-06 07:40] VITALS: BP 129/78
[2021-11-06] MEDS: MULTIVIT W/MINERALS TAB (THERAGRAN M) PO SCH (07:46)
[2021-11-06] MEDS: hydrOXYzine (VISTARIL/ATARAX) 25 MG capsule/tablet PO SCH (07:47)
[2021-11-06] MEDS: VENlafaxine XR 75 MG (EFFEXOR XR) CAP PO SCH (07:49)
[2021-11-06] MEDS: MELOXICAM 7.5 MG (MOBIC) TABLET PO SCH (08:16)
[2021-11-06] MEDS: GABAPENTIN 400 MG (NEURONTIN) CAP PO SCH (08:16)
[2021-11-06] MEDS: SENNA W/DOCUSATE (SENOKOT S) TABLET PO SCH (08:17)
[2021-11-06] MEDS: ASPIRIN E.C. 81 MG (ECOTRIN) TAB PO SCH (08:17)
[2021-11-06] MEDS: SERTRALINE 50 MG (ZOLOFT) TABLET PO SCH (08:17)
[2021-11-06] MEDS: ENOXAPARIN 30 MG/0.3 ML (LOVENOX) SYR SC SCH (08:17)
--- NOTE | 2021-11-06 09:39 | Physical Therapy Daily Note ---
PT Daily Note-Current Subjective Patient agrees to PT. Very emotional this a.m. Pain Numeric Pain Scale: 10-Worst Possible Pain Location: Right Location Body Site: Knee Pain Description: Acute Mental Status Patient Orientation: Normal For Age Transfers SCALE: Activities may be completed with or without assistive devices. 0-Vrrexahkxl-gtallhm completes the activity by him/herself with no assistance from a helper. 5-Set-up or Clean-up Assistance-helper sets up or cleans up; patient completes activity. [place] assists only prior to or following the activity. 4-Supervision or Touching Assistance-helper provides verbal cues and/or touching/steadying and/or contact guard assistance as patient completes activity. Assistance may be provided throughout the activity or intermittently. 3-Partial/Moderate Assistance-helper does LESS THAN HALF the effort. [place] lifts, holds or supports trunk or limbs, but provides less than half the effort. 2-Substantial/Maximal Assistance-helper does MORE THAN HALF the effort. [place] lifts or holds trunk or limbs and provides more than half the effort. 2-Uupzxtaop-vmazkd does ALL the effort. Patient does none of the effort to comp lete the activity. Or, the assistance of 2 or more helpers is required for the patient to complete the activity. If activity was not attempted, code reason: 7-Patient Refused. 9-Not Applicable-not attempted and the patient did not perform the activity before the current illness, exacerbation or injury. 10-Not Attempted due to Environmental Limitations-(lack of equipment, weather restraints, etc.). 88-Not Attempted due to Medical Conditions or Safety Concerns. Lying to Sitting/Side of Bed(Q: 6 Sit to Stand (QC): 6 Chair/Wsm-rf-Spebz Xfer(QC): 6 Weight Bearing Right Lower Extremity: Right Weight Bearing/Tolerated Gait Training Distance: 150' x 2 Walk 10 feet (QC): 6 Walk 50 ft with 2 Turns(QC): 6 Walk 150 ft (QC): 6 Gait Assistive Device: FWW slow and antalgic Stair Training Stair Training: Handrails/: 2 handrails #of Steps: 4 1 Step (curb) (QC): 4 (x 2 sets) 4 Steps (QC): 4 Stairs: Pattern: Step to Exercises Supine Ex: Ankle pumps, Quad Set, Heel Slides, Straight leg raise Supine Reps: 12 Seated Therapy Exercises: Long arc quads Seated Reps: 12 Assessment Patient tolerated treatment well and will dismiss to home with family on this date. Patient educated on importance of performing HEP issued by physician. Patient voices understanding. Patient continues to resist all right knee flexion due to pain. Currently getting 50 degrees active right knee flexion. PT Automatic Spinning Lathe Operator Goals Senior Care Goals PT Senior Care Goals Time Frame: Nov 11, 2021 Roll Left & Right (QC): 6 Sit to Lying (QC): 4 Lying-Sitting on Side/Bed(QC): 4 Sit to Stand (QC): 4 Chair/Cah-rz-Pbfwa Xfer(QC): 4 Walk 10 feet (QC): 4 Walk 50ft with 2 Turns (QC): 4 1 Step (curb) (QC): 4 4 Steps (QC): 4 PT Plan Treatment/Plan Treatment Plan: Discontinue PT Treatment Plan: Bed Mobility, Education, Functional Activity Rayne, Functional Strength, Gait, Safety, Therapeutic Exercise, Transfers Treatment Duration: Nov 11, 2021 Frequency: 11 times per week Estimated Hrs Per Day: .25 hour per day Patient and/or Family Agrees t: Yes Time/GCodes Time In: 811 Time Out: 833 Total Billed Treatment Time: 23 Total Billed Treatment 1 visit EX 10 min FA 13 min NO WYLIE PT Nov 06, 2021 09:39
== END 2021-11-06 10:00 | disposition home health service (06) | DRG 470 ==
LOC: 4TH 07:30 → SURG 07:31 → 4TH 11:15
PROVIDERS: ADMIT Orthopaedic Surgery; ATTEND Orthopaedic Surgery
PROC: 0SRC0J9 Replacement of Right Knee Joint with Synthetic Substitute, Cemented, Open Approach (ICD-10-PCS; principal; 2021-11-04 09:15)
DX: M17.11 Unilateral primary osteoarthritis, right knee (principal); J44.9 Chronic obstructive pulmonary disease, unspecified; I12.9 Hypertensive chronic kidney disease with stage 1 through stage 4 chronic kidney disease, or unspecified chronic kidney disease; F17.210 Nicotine dependence, cigarettes, uncomplicated; N18.9 Chronic kidney disease, unspecified; M79.7 Fibromyalgia; F41.9 Anxiety disorder, unspecified; F32.A Depression, unspecified; G47.00 Insomnia, unspecified; H54.7 Unspecified visual loss; Z86.711 Personal history of pulmonary embolism; Z79.01 Long term (current) use of anticoagulants; Z86.718 Personal history of other venous thrombosis and embolism; Z98.84 Bariatric surgery status; Z82.49 Family history of ischemic heart disease and other diseases of the circulatory system; G89.29 Other chronic pain; M54.9 Dorsalgia, unspecified; G62.9 Polyneuropathy, unspecified; M54.30 Sciatica, unspecified side; R11.2 Nausea with vomiting, unspecified; G43.909 Migraine, unspecified, not intractable, without status migrainosus
CPT/HCPCS: 86850; 86900; 86901; 94664

== ENCOUNTER 2022-04-21 05:31 | Outpatient (CLI) | payer MEDICARE ==
[~2022-04-21] VITALS: Ht 160 cm; Wt 90.9 kg
[~2022-04-21 05:31] MED LIST changes: +APIX5TAB PO
== END 2022-04-21 12:51 | disposition home or self-care (01) ==
LOC: PREOP 05:31
PROVIDERS: ATTEND Orthopaedic Surgery
DX: Z01.818 Encounter for other preprocedural examination (principal)

== ENCOUNTER 2022-04-28 09:14 | Day surgery (SDC) | payer MEDICARE ==
--- NOTE | 2022-04-21 08:06 | HISTORY AND PHYSICAL ---
DATE OF SERVICE: This will be for outpatient surgery on 04/28/2022 for right cubital tunnel release. HISTORY OF PRESENT ILLNESS: The patient is a 51-year-old right hand dominant female with complaints of right hand pain and paresthesias. She reports cramping in her hand. She reports pain when she rests her elbow on the medial aspect, which causes numbness into her ring and small fingers. She denies any recent injuries. She reports the symptoms have been progressive and because of this, has elected to proceed with surgical intervention. REVIEW OF SYSTEMS: No chest pain, no shortness of breath, no dysuria. PAST MEDICAL HISTORY: Anxiety disorder, fibromyalgia, hypertension, wheezing, back pain, COPD, depression, migraines, insomnia, pulmonary embolism, chronic kidney disease. PAST SURGICAL HISTORY: Carpal tunnel release, cholecystectomy, hysterectomy, total knee arthroplasty, tubal ligation, gastric bypass, spinal stimulator, IVC filter. FAMILY HISTORY: Significant for Alzheimer's, ischemic heart disease. PRIMARY CARE PROVIDER: Dr. Brewer. MEDICATIONS: Gabapentin, Eliquis, duloxetine, desvenlafaxine, cyclobenzaprine, aripiprazole, Ambien, omeprazole, meloxicam, Imitrex, hydroxyzine, Ventolin, ondansetron. ALLERGIES: ULTRAM AND TORADOL. SOCIAL HISTORY: The patient smokes half pack cigarettes a day. Denies alcohol use. PHYSICAL EXAMINATION: GENERAL: The patient is well developed, well-nourished, in no acute distress. HEENT: Normocephalic, atraumatic. Pupils are equal, round and reactive to light. Oropharynx is clear. NECK: Supple, no lymphadenopathy. LUNGS: Clear to auscultation bilaterally. HEART: Regular rate and rhythm. ABDOMEN: Soft, nontender, nondistended. EXTREMITIES: The right elbow demonstrates positive Tinel's at the cubital tunnel with positive elbow flexion test. She has decreased sensation in ulnar distribution and weakness with finger abduction. IMPRESSION: Right cubital tunnel syndrome. PLAN: Right cubital tunnel release. The risks, benefits, options, ramifications and recovery have been discussed at length with the patient. She understands and wishes to proceed. Job ID: [id number] DocumentID: [id number] Dictated Date: 04/12/2022 12:36:54 Peer Counselor Date: 04/12/2022 13:24:58 Dictated By: GÓMEZ FRANK MD
[2022-04-28] VITALS (11 sets, daily range): BP systolic 82–181; BP diastolic 40–97
[~2022-04-28] VITALS: Ht 160 cm; Wt 90.9 kg
[2022-04-28] MEDS ORDERED: ceFAZolin INJECTION 1,000 MG VIAL IV ONE (09:30)
[2022-04-28] MEDS: LACTATED RINGERS 1,000 ML IV PRN ×2 (09:47→11:47)
[2022-04-28] MEDS ORDERED: BUPIVACAINE 0.5% 30 ML (SENSORCAINE) VIAL ONE (10:18)
--- NOTE | 2022-04-28 10:46 | Progress Note-Pre Operative ---
Pre-Operative Progress Note H&P Reviewed The H&P was reviewed, patient examined and no changes noted. Date Seen by Provider: Apr 28, 2022 Time Seen by Provider: 10:38 Date H&P Reviewed: Apr 28, 2022 Time H&P Reviewed: 07:11 Pre-Operative Diagnosis: right cubital tunnel syndrome GÓMEZ FRANK MD Apr 28, 2022 10:46
--- NOTE | 2022-04-28 10:47 | Progress Note-Post Operative ---
Post-Operative Progess Note Surgeon (s)/Wind Turbine Design Engineer (s) Surgeon GÓMEZ FRANK MD Wind Turbine Design Engineer: Sky Carrasco Pre-Operative Diagnosis right cubital tunnel syndrome Post-Operative Diagnosis right cubital tunnel syndrome Procedure & Operative Findings Date of Procedure 04/28/22 Procedure Performed/Findings right cubital tunnel release Anesthesia Type GETA Estimated Blood Loss Estimated blood loss (mL): minimal Specimens/Packing Specimens Removed none Packing: none GÓMEZ FRANK MD Apr 28, 2022 10:47
[2022-04-28] MEDS ORDERED: HYDROcodone/APAP 7.5 MG/325 MG (LORTAB, LORCET PLUS) TABLET PO PRN (11:00)
[2022-04-28] MEDS ORDERED: MIDAZOLAM 2 MG/2 ML (VERSED) VIAL ONE (11:00)
[2022-04-28] MEDS ORDERED: fentaNYL INJ 100 MCG/2 ML AMP ONE (11:01)
[2022-04-28] MEDS ORDERED: ONDANSETRON 4 MG/2 ML (SDV) Z0FRAN ONE (11:26)
[2022-04-28] MEDS ORDERED: SEVOFLURANE (ULTANE) 15 ML INHAL SOLN ONE (11:26)
[2022-04-28] MEDS ORDERED: LIDOCAINE PF 2% 5 ML (XYLOCAINE) VIAL ONE (11:26)
[2022-04-28] MEDS ORDERED: proPOfol 200 MG/20 ML (DIPRIVAN) VIAL IV ONE (11:26)
[2022-04-28] MEDS ORDERED: HYDROcodone/APAP 7.5 MG/325 MG (LORTAB, LORCET PLUS) TABLET PO ONE (12:31)
--- NOTE | 2022-04-28 12:38 | Anesthesia-General Post-Op ---
General Patient Condition Mental Status/LOC: Same as Preop Cardiovascular: Satisfactory Nausea/Vomiting: Absent Respiratory: Satisfactory Pain: Controlled Complications: Absent Post Op Complications Complications None Follow Up Care/Instructions Patient Instructions None needed. Anesthesia/Patient Condition Patient Condition Patient is doing well, no complaints, stable vital signs, no apparent adverse anesthesia problems. No complications reported per nursing. ARNAUD THORNTON CRNA Apr 28, 2022 12:38
[2022-04-28] MEDS ORDERED: fentaNYL INJ 100 MCG/2 ML AMP IVP ONE (12:45)
--- NOTE | 2022-04-28 20:43 | OPERATIVE REPORT ---
DATE OF SERVICE: 04/28/2022 PREOPERATIVE DIAGNOSIS: Right cubital tunnel syndrome. POSTOPERATIVE DIAGNOSIS: Right cubital tunnel syndrome. PROCEDURE: Right cubital tunnel release. SURGEON: Drew Frank MD SENIOR MANAGER QUALITY ASSURANCE: Sky Carrasco, who assisted throughout the procedure and closed the incision. ANESTHESIA: General endotracheal by Lisseth Sexton CRNA. TOURNIQUET TIME: 6 minutes at 250 mmHg. ESTIMATED BLOOD LOSS: Minimal. DRAINS: None. COMPLICATIONS: None. POSTOPERATIVE PLAN: Early range of motion. The patient was transferred to the recovery room awake and stable condition. STATEMENT OF MEDICAL NECESSITY: The patient is a 51-year-old right hand dominant female with complaints of right hand pain and paresthesias in her ring and small fingers. She had a positive elbow flexion test. She had positive Tinel's of cubital tunnel. She had tried rest, activity modifications, and anti-inflammatories without relief. Due to functional impairment and failure to improve with conservative measures, the patient elected to proceed with surgical intervention. DESCRIPTION OF PROCEDURE: After risks and benefits of procedure were discussed and questions were answered, an informed consent was signed and placed on chart, the operative site was confirmed in the preoperative holding area initialed by the surgeon. The patient was then transferred to the operating room and after adequate levels of general endotracheal anesthetic were obtained, a timeout was called, confirming the operative site. The right upper extremity was prepped and draped in the usual sterile fashion with arm elevated, tourniquet inflated to 250 mmHg. A curved incision was made posterior to the medial epicondyle of the elbow. The underlying soft tissues were carefully dissected. The ulnar nerve was identified proximal to the medial epicondyle and carefully dissected to a 0.9 cm proximally. This was then freed into the cubital tunnel and flexor/pronator mass. The nerve was intact at the conclusion of the procedure. After fully decompressing the nerve, the elbow was taken through range of motion with no subluxation noted. The tourniquet was deflated. Pressure was used for hemostasis. Wound was copiously irrigated, 2-0 Vicryl was used to reapproximate subcutaneous tissue and skin was closed with 4-0 nylon in a running alternating horizontal mattress fashion. Incision was infiltrated with plain Marcaine. A soft dressing was applied and the patient was transferred to the recovery room awake and in stable condition. Job ID: [id number] DocumentID: [id number] Dictated Date: 04/28/2022 11:33:17 Cafe Associate Date: 04/28/2022 20:42:26 Dictated By: DREW FRANK MD
== END 2022-04-28 13:35 ==
LOC: SDC 09:14
PROVIDERS: ATTEND Orthopaedic Surgery
DX: G56.21 Lesion of ulnar nerve, right upper limb (principal); F17.210 Nicotine dependence, cigarettes, uncomplicated
CPT/HCPCS: 87081